=== PATIENT | female | born 1955 | race Caucasian/White ===

== ENCOUNTER → 2016-05-16 | Outpatient (CLI) | payer BC ==
[~2016-05-16] MED LIST: ALBU1AER9 INH; AMB5 PO; AMT24 PO; ARIP1TAB8 PO; ASPI81TA21 PO; ASPI81TA28 PO; ATOR10TA88 PO; BND25X PO; CHOL1CAP95 PO; CHOL1TAB46 PO; CLB/200 PO; CLB200 PO; CLC100 PO; CYAN10005 PO; DOCU100C31 PO; DOXY100C76 PO; DULO60CA44 PO; ERGO500037 PO; HYDR-4079 PO; INSPMPHMLG; INSU100I2; LAMO100T PO; LAMO100T16 PO; LAMO200T38 PO; LINA1CAP2 PO; LITH150C PO; LOSA25TA18 PO; LPT10 PO; LTHSR450 PO; LVQ500 PO; MAGN1SOL7 PO; MOME100A INH; MOME200A INH; MOMLX PO; MULT-506 PO; MULT-589 PO; NYSTCRE32 TOP; OXYB5TAB74 PO; OXYC1TAB3 PO; OXYSR10 PO; POLY335019 PO; PRED1SUS3 OPR; PRLSR20 PO; PRVHFAIN INH; RXC5 PO; TYL325X PO; VNTHFA/IN INH; VTMD PO; XRL10 PO; ZOLP5TAB6 PO
== END | disposition home or self-care (01) ==
LOC: C.PAPS 10:11
PROVIDERS: ATTEND Obstetrics & Gynecology
DX: Z01.419 Encounter for gynecological examination (general) (routine) without abnormal findings (principal)

== ENCOUNTER → 2016-07-07 | Outpatient (CLI) | payer BC ==
[2016-07-07 13:18] LABS: ALT/SGPT 24 U/L (12-78); BLOOD UREA NITROGEN 12 mg/dl (7-18); BUN/CREATININE RATIO 12.9 (10-20); CALCIUM 9.2 mg/dl (8.5-10.1); CARBON DIOXIDE 23 mmol/L (21-32); CHLORIDE 103 mmol/L (98-107); CHOLESTEROL 133 mg/dl (0-200); GLUCOSE 273 mg/dl (70-99); POTASSIUM 4.3 mmol/L (3.5-5.1); SODIUM 136 mmol/L (136-145)
[2016-07-07 13:21] LABS: ALB/GLOB RATIO 0.9 (0.9-2); ALKALINE PHOSPHATASE 95 U/L (45-117); AST/SGOT 14 U/L (15-37); CHOLESTEROL/HDL RATIO 3.6; HDL CHOLESTEROL 37 mg/dl; LDL CHOLESTEROL CALCULATED 66 mg/dl; TRIGLYCERIDES 151 mg/dl (0-150); VERY LOW DENSITY LIPOPROT CALC 30 mg/dl
[2016-07-07 14:10] LABS: ESTIMATED AVERAGE GLUCOSE 209 mg/dl; HA1C FLAG Normal (Normal)
== END | disposition home or self-care (01) ==
LOC: C.LAB1850 11:43
PROVIDERS: ATTEND Internal Medicine
DX: E11.49 Type 2 diabetes mellitus with other diabetic neurological complication (principal); Z11.59 Encounter for screening for other viral diseases; F31.9 Bipolar disorder, unspecified

== ENCOUNTER → 2016-07-11 | Outpatient (CLI) | payer BC ==
--- NOTE | 2016-07-11 15:06 | DIAGNOSTIC IMAGING REPORT ---
CHEST 2 VIEWS ROUTINE CLINICAL HISTORY: R05 [id number] dyspnea COMPARISON STUDY: 02/04/2014 FINDINGS: Moderate cardiomegaly. Prominent 5 vasculature and/or bronchovascular markings. Diaphragms smooth. There are no focal infiltrates. IMPRESSION: Bronchitis versus pulmonary vascular congestion. Electronically signed by: Ja Rodriguez M.D. 07/11/2016 3:05 PM Dictated Date/Time: 07/11/2016 3:04 PM
== END | disposition home or self-care (01) ==
LOC: C.RAD1850 14:55
PROVIDERS: ATTEND Allergy & Immunology Allergy
DX: R05 Cough (principal)

== ENCOUNTER → 2016-07-13 | Outpatient (CLI) | payer BC ==
--- NOTE | 2016-07-13 12:51 | DIAGNOSTIC IMAGING REPORT ---
CHEST 2 VIEWS ROUTINE CLINICAL HISTORY: Acute bronchitis. Cough. COMPARISON STUDY: 07/11/2016 FINDINGS: The heart is borderline enlarged. There is no focal pulmonary consolidation. Mild interstitial prominence likely relates to technical factors given the patient's body habitus. There is no overt failure. There are no pleural effusions.[ IMPRESSION: No active disease in the chest. Electronically signed by: Trevor Brown M.D. 07/13/2016 12:50 PM Dictated Date/Time: 07/13/2016 12:49 PM
== END | disposition home or self-care (01) ==
LOC: C.RAD1850 12:32
PROVIDERS: ATTEND Internal Medicine Infectious Disease
DX: J20.9 Acute bronchitis, unspecified (principal); R05 Cough

== ENCOUNTER 2016-08-31 04:57 | Inpatient (IN) | payer BC ==
[2016-07-29 15:13] VITALS: BMI 44.0
--- NOTE | 2016-07-29 15:30 | PAT Medication Instructions ---
Service Date Jul 29, 2016. Current Home Medication List Albuterol Sulfate (Proair Hfa), 1 PUFF INH Q4 PRN for Wheezing Aripiprazole (Abilify), 10 MG PO QAM Aspirin Enteric Coated (Ecotrin Or Generic), 81 MG PO QPM Atorvastatin (Atorvastatin Calcium), 1 TAB PO QPM Cholecalciferol (Vitamin D3), 1 TAB PO QPM Doxycycline Monohydrate (Monodox), 100 MG PO BID Duloxetine Hcl (Cymbalta), 60 MG PO QAM Ergocalciferol (Vitamin D 52365 Unit), 50,000 UNIT PO WK Insulin Human Lispro (Insulin Humalog Pump ), 1 EA N/A UD Lamotrigine (Lamictal), 200 MG PO HS Lamotrigine (Lamictal), 100 MG PO QAM Linaclotide (Linzess), 290 MCG PO QAM PRN for RN [place] Carbonate ([place] Carbonate), 450 MG PO BID Losartan Potassium (Cozaar), 25 MG PO QAM Mometasone Furoate-Formoterol (Dulera 200/5 Mcg), 2 PUFFS INH BID Omeprazole (Prilosec), 20 MG PO QAM PRN for PRN Oxybutynin Chloride (Ditropan), 10 MG PO BID Medication Instructions For Your Scheduled Surgery Insulin Human Lispro (Insulin Humalog Pump ), 1 EA N/A UD (set pump at basal rate after midnight prior to surgery- no bolus after midnight) Omeprazole (Prilosec), 20 MG PO QAM PRN for PRN (only taking with Doxycycline) - Hold the following medications the morning of surgery: Oxybutynin Chloride (Ditropan), 10 MG PO BID Losartan Potassium (Cozaar), 25 MG PO QAM Linaclotide (Linzess), 290 MCG PO QAM PRN for RN Ergocalciferol (Vitamin D 64936 Unit), 50,000 UNIT PO WK - Take the following medications the morning of surgery with a sip of water: Mometasone Furoate-Formoterol (Dulera 200/5 Mcg), 2 PUFFS INH BID Albuterol Sulfate (Proair Hfa), 1 PUFF INH Q4 PRN for Wheezing (bring with you to hospital on day of surgery) - Take the following medications as scheduled the afternoon/night before surgery : Oxybutynin Chloride (Ditropan), 10 MG PO BID Mometasone Furoate-Formoterol (Dulera 200/5 Mcg), 2 PUFFS INH BID Lamotrigine (Lamictal), 100 MG PO QAM Duloxetine Hcl (Cymbalta), 60 MG PO QAM Aripiprazole (Abilify), 10 MG PO QAM [place] Carbonate ([place] Carbonate), 450 MG PO BID Lamotrigine (Lamictal), 200 MG PO HS Aspirin Enteric Coated (Ecotrin Or Generic), 81 MG PO QPM Atorvastatin (Atorvastatin Calcium), 1 TAB PO QPM Cholecalciferol (Vitamin D3), 1 TAB PO QPM Albuterol Sulfate (Proair Hfa), 1 PUFF INH Q4 PRN for Wheezing If you have any questions please call us at [phone] or [phone] ( Wendie) or [phone]
[2016-07-29 16:31] LABS: BASO % 0.3 %; BASO ABS # 0.03 K/uL (0-0.2); COMPLETE YES; EOS % 1.8 %; HEMATOCRIT 36.8 % (37-47); IG% 0.2 %; LYMPH % 20.5 %; LYMPH ABS # 2.22 K/uL (1.2-3.4); MEAN CORPUSCULAR HEMOGLOBIN 28.4 pg (25-34); MEAN CORPUSCULAR HGB CONC 33.4 g/dl (32-36); MEAN PLATELET VOLUME 8.7 fL (7.4-10.4); MONO % 6.6 %; NEUT % 70.6 %; PLATELET COUNT 189 K/uL (130-400); RED BLOOD COUNT 4.33 M/uL (4.2-5.4); WHITE BLOOD COUNT 10.84 K/uL (4.8-10.8)
[2016-07-29 16:36] LABS: URINE APPEARANCE CLEAR (CLEAR); URINE BILIRUBIN NEG (NEG); URINE COLOR YELLOW; URINE NITRITE NEG (NEG); URINE SPECIFIC GRAVITY 1.011 (1.000-1.030); UROBILINOGEN NEG (NEG); ZZUR CULT IF INDIC CLEAN CATCH NO
[2016-07-29 16:41] LABS: PARTIAL THROMBOPLASTIN RATIO 1.2
[2016-07-29 16:44] LABS: MANUAL MICROSCOPIC REQUIRED? NO; REVIEW REQ? NO
--- NOTE | 2016-08-30 20:14 | HISTORY & PHYSICAL EXAMINATION ---
DATE OF ADMISSION: 08/31/2016 CHIEF COMPLAINT: Chronic right knee pain. HISTORY OF PRESENT ILLNESS: This is a 60-year-old female patient of Dr. Bartholomew, complaining of chronic right knee pain, longstanding, now progressively getting worse. The patient has been diagnosed with end-stage osteoarthritis. She has failed conservative treatment including anti-inflammatories, intraarticular injections, and the use of a cane and a brace. The patient has increased pain with weightbearing activities and her pain does interfere with her activities of daily living. PAST MEDICAL HISTORY: Hypertension, hypercholesterolemia, asthma, COPD, sleep apnea with the use of CPAP, depression, neuropathy in her feet, diabetes with insulin, osteoarthritis, spine problems, sciatica, obesity, dental issues, fatty liver disease, history of basal cell carcinoma. SOCIAL HISTORY: Nonsmoker, nondrinker. SURGICAL HISTORY: Gallbladder, cataract, right knee x2, tonsillectomy, wisdom teeth, and left hand surgery. REVIEW OF SYSTEMS: The patient complains of chronic right knee pain. Otherwise, denies any shortness of breath, chest pain, nausea, vomiting, or other joint complaints. FAMILY HISTORY: Noncontributory. MEDICATIONS: Include insulin via insulin pump, Abilify 10 mg daily, Cymbalta 60 mg daily, Lamictal 200 mg half tablet in the morning and half tablet at bedtime, lithium 450 mg b.i.d., Dulera 200 mcg 2 puffs daily, ProAir HFA 90 mcg 1-2 puffs q. 4 hours p.r.n., 81 mg aspirin daily, Cozaar 25 mg daily, Linzess 290 mcg in the morning every other day, Lipitor 10 mg daily, oxybutynin 5 mg 2 tablets b.i.d., vitamin D 60,000 units weekly and 5000 units nightly. ALLERGIES: INCLUDE LISINOPRIL AND MELOXICAM. PHYSICAL EXAMINATION: GENERAL: Well-developed, well-nourished 60-year-old female in no acute distress. She is alert and oriented x3 and pleasant. HEENT: Normocephalic, atraumatic. Extraocular motions are intact. Pupils are equal and reactive to light. HEART: Regular rate and rhythm, no murmurs appreciated. LUNGS: Clear. ABDOMEN: Soft and nontender, bowel sounds are present. EXTREMITIES: Right knee reveals a valgus deformity. She has limited range of motion of 0-105 degrees. She has lateral joint line tenderness with crepitation with passive range of motion. She has mild effusion. She has 5/5 strength. NEUROLOGIC: Neurovascularly, she is intact in her right lower extremity. DIAGNOSES: Right knee end-stage osteoarthritis, hypertension, hypercholesterolemia, asthma, chronic obstructive pulmonary disease, sleep apnea with the use of CPAP, depression, neuropathy in her feet, diabetes mellitus with an insulin pump, osteoarthritis, spine problems, sciatica, obesity, dental issues, history of fatty liver disease, and a history of basal cell carcinoma. PLAN: The patient was advised of her diagnosis. Indications, risks, benefits, and postop course have all been reviewed. The patient wishes to proceed with right total knee arthroplasty. Necessary consent forms, preoperative testing and clearances will be obtained.
[~2016-08-31] VITALS: Ht 167.6 cm; Wt 125.0 kg
[2016-08-31] VITALS (9 sets, daily range): BP systolic 111–137; BP diastolic 57–74; PULSE 57–72; TEMP 36.6–37; O2SAT 91–100; BMI 44.0
[~2016-08-31 04:57] MED LIST changes: -AMB5 PO; -AMT24 PO; -ASPI81TA28 PO; -ATOR10TA88 PO; -BND25X PO; -CHOL1CAP95 PO; -CLB/200 PO; -CLB200 PO; -CLC100 PO; -CYAN10005 PO; -DOCU100C31 PO; +DTR/5 PO; -HYDR-4079 PO; -INSU100I2; -LAMO100T16 PO; -LTHSR450 PO; -LVQ500 PO; -MAGN1SOL7 PO; -MOME100A INH; -MOMLX PO; -MULT-506 PO; -MULT-589 PO; -NYSTCRE32 TOP; -OXYB5TAB74 PO; -OXYC1TAB3 PO; -OXYSR10 PO; -POLY335019 PO; -PRED1SUS3 OPR; -PRVHFAIN INH; -RXC5 PO; -TYL325X PO; -VNTHFA/IN INH; -VTMD PO; -XRL10 PO; -ZOLP5TAB6 PO
[2016-08-31] MEDS ORDERED: AMT24 PO (05:40)
[2016-08-31] MEDS ORDERED: MAGN1SOL7 PO (05:43)
[2016-08-31] MEDS ORDERED: POLY335019 PO (05:43)
[2016-08-31] MEDS ORDERED: FAMOTIDINE 20 MG TAB PO SCH (06:00)
[2016-08-31] MEDS ORDERED: ROPIVACAINE 5MG/ML 30 ML 150 MG, BUPIVACAINE/EPINEPHR 0.5% MPF 30 ML, KETAMINE HCL INJ ... INFIL SCH ×5 (06:00)
[2016-08-31] MEDS ORDERED: CEFAZOLIN 3000 MG/65 ML D5W 65 ML IV SCH (06:00)
[2016-08-31] MEDS ORDERED: GABAPENTIN 300 MG CAP PO SCH (06:00)
[2016-08-31] MEDS ORDERED: CeleBREX 200 MG CAP PO SCH (06:00)
[2016-08-31] MEDS ORDERED: LACTATED RINGER'S 1000ML 500 ML IV ONE (06:00)
[2016-08-31] MEDS ORDERED: LACTATED RINGER'S 1000ML 1,000 ML IV SCH (06:00)
[2016-08-31] MEDS ORDERED: ACETAMINOPHEN 500 MG TAB PO SCH (06:00)
[2016-08-31] MEDS ORDERED: LACTATED RINGER'S 1000ML IV SCH (06:00)
[2016-08-31] MEDS ORDERED: METOCLOPRAMIDE HCL 10 MG TAB PO SCH (06:00)
[2016-08-31] MEDS ORDERED: BUPIVACAINE 0.5 % 5 MG/1 ML PF 10ML VIAL ONE (06:32)
[2016-08-31] MEDS ORDERED: ORTHO JOINT ANESTHETIC ONE (06:35)
[2016-08-31] MEDS ORDERED: BACITRACIN 50000 UNIT VIAL ONE (06:36)
[2016-08-31] MEDS ORDERED: POVIDONE-IODINE OP SOLN 30 ML BTL ONE (06:36)
[2016-08-31] MEDS ORDERED: MIDAZOLAM HCL 1 MG/ML 2ML VIAL ONE ×2 (06:53)
[2016-08-31] MEDS ORDERED: FENTANYL CITRATE INJ 50 MCG/1 ML 2 ML VIAL ONE (06:53)
[2016-08-31] MEDS ORDERED: ONDANSETRON INJ 2 MG/ML 2 ML VIAL IV PRN ×2 (07:00→09:30)
[2016-08-31] MEDS ORDERED: ATROPINE SULFATE 0.1 MG/ML 5ML SYR IV PRN (07:00)
[2016-08-31] MEDS ORDERED: FENTANYL CITRATE INJ 50 MCG/1 ML 2 ML VIAL IV PRN (07:00)
[2016-08-31] MEDS ORDERED: EpHEDrine SULFATE INJ 50 MG/ML AMP IV PRN (07:00)
--- NOTE | 2016-08-31 07:11 | History & Physical Bridge Note ---
H&P Re-Evaluation Bridge Note: I have examined the patient, reviewed the History & Physical and in the interval since the performance of the History & Physical I have noted the following changes of clinical significance: No changes noted
[2016-08-31] MEDS ORDERED: ONDANSETRON INJ 2 MG/ML 2 ML VIAL ONE (07:28)
[2016-08-31] MEDS ORDERED: EpHEDrine SULFATE 50MG/5ML SYR ONE (07:41)
[2016-08-31] MEDS ORDERED: PHENYLEPHRINE 100MCG/ML 5ML SYR ONE (07:41)
--- NOTE | 2016-08-31 08:53 | [facility] Operative Report ---
Operative Report Operative Date Aug 31, 2016. Pre-Operative Diagnosis Degenerative Joint Disease Right Knee Post-Operative Diagnosis same Procedure(s) Performed right tka Surgeon Dr. Downs [employer] Engineer Surgeon(s) Ja Ambriz PA-C Estimated Blood Loss 5 ml Findings scar from prior knee arthroscopies grade 4 djd lateral valgus knee,s/p lateral meniscectomy Specimens A. Right Knee Bone and Tissue Drains 2 hemovac Anesthesia spinal ,regional ,orthomix Complication(s) None Disposition Recovery Room / PACU Indications end stage djd oa I attest to the content of the Intraoperative Record and any orders documented therein. Any exceptions are noted below.
[2016-08-31] MEDS ORDERED: BISACODYL 10 MG SUPP PR PRN (09:30)
[2016-08-31] MEDS ORDERED: ACETAMINOPHEN 325 MG TAB PO PRN (09:30)
[2016-08-31] MEDS ORDERED: ALBUTEROL HFA 8 GM INHALER INH PRN (09:30)
[2016-08-31] MEDS ORDERED: SOD PHOSPHATE/SOD BIPHOSPHATE ENEMA 132 ML BTL PR PRN (09:30)
[2016-08-31] MEDS ORDERED: ZOLPIDEM TARTRATE 5 MG TAB PO PRN (09:30)
[2016-08-31] MEDS ORDERED: MoRPHine SULFATE 2 MG/ML CARP IV PRN (09:30)
[2016-08-31] MEDS ORDERED: MAGNESIUM CITRATE 296 ML/BTL PO PRN (09:30)
--- NOTE | 2016-08-31 09:31 | OPERATIVE REPORT ---
DATE OF OPERATION: 08/31/2016 INDICATION FOR PROCEDURE: The patient is a 60-year-old female with chronic progressive osteoarthritis in her right knee. She does have obesity and diabetes. She is on insulin pump. She has had 4 knee arthroscopies. She has a valgus knee, [id number] in lateral compartment. PREOPERATIVE DIAGNOSIS: End-stage osteoarthritis, right knee, status post prior arthroscopies, right knee. POSTOPERATIVE DIAGNOSIS: Same. PROCEDURE: Right total knee arthroplasty. SURGEON: Dr. Downs. CONCRETE FINISHING MACHINE OPERATOR: Ja Ambriz PA-C. ANESTHESIA: Spinal, regional block, Orthomix. OPERATIVE PROCEDURE: The patient taken to the operating room, anesthetized under regional block and spinal anesthetic. She was placed supine on the operating room table. Pneumatic tourniquet was placed about her right upper obese thigh. Her right lower extremity was prepped and draped with ChloraPrep in the usual sterile fashion. Preoperative exam demonstrated she had range of motion of -5 through 100 degrees only. She had a stiff knee. No instability. Right lower extremity was elevated, exsanguinated with Esmarch bandage. Pneumatic tourniquet was raised to 350 mmHg because of obesity of her thigh. I used the Lockett \T\ Nephew Journey 2.0 total knee arthroplasty system using [employer] MRI templating. She was sized for a 5 femur and 4 tibia. I made an anterior incision longitudinally across the knee. Subcutaneous flaps were elevated. An incision was made through the medial retinaculum and carried up in the mid third of the quadriceps tendon and down to the medial tibial tubercle. Intraarticular findings demonstrated she had large patellar osteophytes, tricompartmental osteophytes, [id number] in the lateral compartment. She had a previous lateral meniscectomy. She had a lot of scar tissue and she had some synovitis. The knee was exposed by excising the infrapatellar fat pad which was scarred, excised the medial meniscus, and there were no remnants of the lateral meniscus to excise as it was previously excised totally. I excised the PCL and the ACL. Fat pad over the anterior femur for placement of the component in that area was excised. The custom femoral cutting block was placed. This was pinned in position, the distal femoral cut was made, then we went ahead and extended the knee and did a subperiosteal peel lateral release around the patella, measured the patellar width and the width was reproduced using a 32 patellar component, and we used a freehand cut technique. The excess lateral facet of the patella was bevelled off to prevent any impingement. We used the drill to make 3 drill holes for the patellar pegs. The femur was re-exposed and then the 5-in-1 cutting block was placed. Anterior, posterior and chamfer cuts were made for the 5 femur component. Then, the tibia was subluxed and the custom tibial cutting block was pinned in position. Then, the proximal tibia cut was made with the oscillating saw. Then, the lamina manager ob was used and there was a large calcified loose body in the posteromedial compartment. There were some posterior osteophytes that were removed with a curved osteotome and then angled curette. We assessed ligamentous balance with good balance in extension and flexion. We did some release of the lateral capsule to help balance the knee. At this time, the tibia was re-exposed and the 4 tibial trial was externally rotated in line with the tibial tubercle, pinned in position, the punch for the stem was used. Then, the 5 femoral trial was inserted, centered, and the notch cutting devices were used. A collet was placed. A 10 poly insert gave balanced ligaments through full range of motion and patella tracked centrally. She now had full extension and flexion to 125 degrees. The trials were removed. The anesthetic cocktail was injected per protocol. The knee was copiously irrigated with pulsatile lavage antibiotic solution and bacitracin. The final components were cemented with Simplex G cement. Final components were the Lockett \T\ Nephew Journey 2.0, 5 Oxinium femoral component for right knee, then the tibial baseplate which was size 4, the poly was 10 mm posterior stabilized insert, and a 32 patella. All the cement cured and the Betadine soak was used per protocol. The knee was again irrigated with antibiotic solution and bacitracin. Two drains were brought out laterally. The quadriceps tendon and medial retinaculum were closed with interrupted [id number] #1 Vicryl sutures. The knee was taken through full range of motion and repair was secured. Subcutaneous tissues closed with interrupted 2-0 Vicryl, skin closed with cristian. Sterile dressings were applied and Silverlon dressing. The patient tolerated the procedure well. Ja Ambriz PA-C, was my medical administrative assistant, functioned as medical administrative assistant for the entire procedure. He assisted in patient positioning, prepping, draping, soft tissue retraction, instrument management during the procedure, performed the fascial, subcutaneous and skin closure, and will participate in postop care of the patient. I attest to the content of the Intraoperative Record and any orders documented therein. Any exceptio ns are noted below.
--- NOTE | 2016-08-31 09:48 | Anesthesiology Progress Note ---
Anesthesia Post Op Note Date & Time Aug 31, 2016 at 09:47 Vital Signs Pain Intensity: 0 Vital Signs Past 12 Hours Date Time Temp Pulse Resp B/P Pulse Ox O2 Delivery O2 Flow Rate FiO2 08/31/16 09:35 65 20 119/64 98 Nasal Cannula 2 08/31/16 09:25 70 17 103/61 97 Nasal Cannula 2 08/31/16 09:18 36.4 76 20 108/59 100 Mask 10 08/31/16 05:57 36.8 68 20 137/70 95 Room Air Notes Mental Status: alert / awake / arousable, participated in evaluation Pt Amnestic to Procedure: Yes Nausea / Vomiting: adequately controlled Pain: adequately controlled Airway Patency, RR, SpO2: stable & adequate BP & HR: stable & adequate Hydration State: stable & adequate Neuraxial Anesthesia: was administered, sensory block is resolving Anesthetic Complications: no major complications apparent
--- NOTE | 2016-08-31 09:56 | DIAGNOSTIC IMAGING REPORT ---
TWO VIEWS RIGHT KNEE CLINICAL HISTORY: Postoperative examination. FINDINGS: AP and crosstable lateral portable views of the right knee are obtained. A right knee arthroplasty is in near anatomic alignment. There has been undersurface remodeling of the patella. No acute fracture is seen. There are expected postoperative changes around the knee including skin clips, a surgical drain, soft tissue edema, and subcutaneous gas. IMPRESSION: Expected postoperative changes status post right knee arthroplasty. No acute fracture is seen. Electronically signed by: José Galarza M.D. 08/31/2016 9:54 AM Dictated Date/Time: 08/31/2016 9:54 AM
[2016-08-31] MEDS ORDERED: POLYETHYLENE (MIRALAX) 17 GM PACK PO PRN (10:30)
[2016-08-31] MEDS ORDERED: INSULIN HUMAN LISPRO (humaLOG) 100 UNITS/ML VIAL SC PRN (11:00)
[2016-08-31] MEDS ORDERED: GLUCAGON FOR INJ 1 MG VIAL SQ PRN (11:00)
[2016-08-31] MEDS ORDERED: MoRPHine SULFATE 4 MG/ML 1 ML CARP\\VIAL IV PRN (11:00)
[2016-08-31] MEDS ORDERED: GLUCOSE 10 TABS/TUBE PO PRN (11:00)
[2016-08-31] MEDS ORDERED: DEXTROSE 50% 50 ML SYR IV PRN (11:00)
[2016-08-31] MEDS ORDERED: GLUCOSE 40% GEL 15 GM TUBE PO PRN (11:00)
[2016-08-31] MEDS: TRANEXAMIC ACID INJ 1,000 MG in SODIUM CHLORIDE 0.9% 100ML 100 ML IV SCH ×2 (11:04→11:09)
[2016-08-31] MEDS: SODIUM CHLORIDE 0.9% 1000ML 1,000 ML IV SCH ×2 (11:07→19:34)
[2016-08-31] MEDS ORDERED: HydrALAZINE HCL 20 MG/ML VIAL IV. PRN (12:00)
--- NOTE | 2016-08-31 12:14 | Medical Consult ---
Consultation Date of Consultation: Aug 31, 2016. Attending Physician: Moris Downs M.D. Reason for Consultation: Medical management History of Present Illness This is a 60 y/o female with a history of anxiety, depression, DM II, fatty liver disease, hypertension, hyperlipidemia, obstructive sleep apnea, asthma, and chronic constipation who presents s/p right total knee arthroplasty with Dr. Downs on 08/31 for medical management. The patient reports feeling fatigued postoperatively but is otherwise feeling well. She has not eaten, urinated, passed gas or had a bowel movement yet. She still reports numbness and tingling in her legs from the anesthesia. She does report a dry cough. The patient denies fevers, chills, sweats, chest pain, palpitations, claudication, wheezing, shortness of breath, nausea, vomiting, abdominal pain, dysuria, hematuria, urinary retention, paralysis, weakness. Past Medical/Surgical History Anxiety Depression Diabetes mellitus type 2 Fatty liver Hypertension Hyperlipidemia Obstructive sleep apnea Chronic constipation Family History Basal cell carcinoma Cancer Diabetes mellitus Heart disease Hypertension Kidney disease Kidney stones Melanoma Myocardial infarction Social History Smoking Status: Never Smoker Smokeless Tobacco Use: No Alcohol Use: none Drug Use: none Marital Status: single Housing Status: lives alone Occupation Status: unemployed Allergies Coded Allergies: Meloxicam (Unverified Allergy, Unknown, hives, cELEBREX IS OK PER PT., ) Lisinopril (Verified Adverse Reaction, Intermediate, COUGH, 08/31/16) Current Inpatient Medications Current Inpatient Medications Medications (Trade) Dose Ordered Sig/Mable Route Start Time Stop Time Status Last Admin Dose Admin Lactated Ringer's 1,000 ml @ 60 mls/hr [id number] IV 08/31/16 06:00 08/31/16 22:39 08/31/16 06:25 60 MLS/HR Cefazolin Sodium (Ancef 3000 Mg/ 65 ml D5W) 65 ml @ 100 mls/hr PREOP IV 08/31/16 06:00 08/31/16 18:00 08/31/16 07:12 100 MLS/HR Acetaminophen (Tylenol Tab) 1,000 mg PREOP PO 08/31/16 06:00 08/31/16 18:00 08/31/16 06:16 1,000 MG Celecoxib (CeleBREX CAP) 200 mg PREOP PO 08/31/16 06:00 08/31/16 18:00 08/31/16 06:16 200 MG Famotidine (Pepcid Tab) 20 mg PREOP PO 08/31/16 06:00 08/31/16 18:00 08/31/16 06:16 20 MG Gabapentin (Neurontin Cap) 600 mg PREOP PO 08/31/16 06:00 08/31/16 18:00 08/31/16 06:16 600 MG Metoclopramide HCl 10 mg 10 mg PREOP PO 08/31/16 06:00 08/31/16 18:00 08/31/16 06:16 10 MG Tranexamic Acid 1000 mg/Sodium Chloride 110 ml @ 660 mls/hr TODAY@06,0630 IV 08/31/16 06:00 08/31/16 18:00 Ropivacaine 150 mg/Bupivacaine HCl/Epinephrine Bitart 30 ml/ Ketamine HCl 10 mg/Clonidine 100 mcg/Sodium Chloride 30 ml/ Empty Bag 91.2 ml @ 0 mls/hr TODAY@06 INFIL 08/31/16 06:00 08/31/16 15:00 Lactated Ringer's (Lr 1000ml) 1,000 ml @ 15 mls/hr Q24H IV 08/31/16 06:00 09/01/16 05:59 Fentanyl Citrate (Fentanyl Inj) 50 mcg Q5M PRN IV 08/31/16 07:00 08/31/16 13:00 Ondansetron HCl (Zofran Inj) 4 mg ONE PRN IV 08/31/16 07:00 08/31/16 13:00 Ephedrine Sulfate (EpHEDrine SULFATE INJ) 5 mg Q5M PRN IV 08/31/16 07:00 08/31/16 13:00 Atropine Sulfate (Atropine Sulfate 0.1MG/Ml Inj) 0.5 mg Q1M PRN IV 08/31/16 07:00 08/31/16 13:00 Albuterol (Ventolin Hfa Inhaler) 1 puffs Q4 PRN INH 08/31/16 09:30 09/30/16 09:29 Aripiprazole (Abilify Tab) 10 mg QAM PO 09/01/16 09:00 10/01/16 08:59 Atorvastatin Calcium (Lipitor Tab) 10 mg QPM PO 08/31/16 21:00 09/30/16 20:59 Duloxetine HCl (Cymbalta Cap) 60 mg QAM PO 09/01/16 09:00 10/01/16 08:59 Insulin Human Lispro (HumaLOG INSULIN PUMP) 1 ea ACHS N/A 08/31/16 12:00 09/30/16 11:59 Lamotrigine (Lamictal Tab) 100 mg QAM PO 09/01/16 09:00 10/01/16 08:59 Lamotrigine (Lamictal Tab) 200 mg HS PO 08/31/16 21:00 09/30/16 20:59 Losartan Potassium (coZAAR TAB) 25 mg QAM PO 09/01/16 09:00 10/01/16 08:59 Magnesium Citrate (Citrate Of Magnesia Soln) 296 ml DAILY PRN PO 08/31/16 09:30 09/30/16 09:29 Oxybutynin Chloride (Ditropan Tab) 10 mg BID PO 08/31/16 21:00 09/30/16 20:59 Cholecalciferol (Vitamin D Tab) 5,000 inter.unit DAILY@1900 PO 08/31/16 19:00 09/30/16 18:59 [place] Carbonate (Eskalith Cr Tab) 450 mg BID PO 08/31/16 21:00 09/30/16 20:59 Lubiprostone (Amitiza) 24 mcg BIDM PO 08/31/16 17:45 09/30/16 17:44 Miscellaneous Information (Order Awaiting Action) 1 ea QS N/A 08/31/16 16:00 09/30/16 15:59 Polyethylene 17 gm 17 gm DAILY PRN PO 08/31/16 10:30 09/30/16 10:29 Sodium Chloride 1,000 ml @ 100 mls/hr Q10H IV 08/31/16 09:17 09/01/16 09:16 08/31/16 11:07 100 MLS/HR Cefazolin Sodium/ Dextrose (Ancef Iv/D5 50ml) 60 ml @ 100 mls/hr Q8H IV 08/31/16 16:00 09/01/16 00:35 Celecoxib (CeleBREX CAP) 200 mg BID PO 08/31/16 21:00 09/30/16 20:59 Oxycodone HCl (Roxicodone Immediate Rel Tab) 1 TABLET FOR PAIN RATING... Q4H PRN PO 08/31/16 09:30 09/14/16 09:29 Oxycodone HCl (Oxycontin Tab) 10 mg Q12 PO 08/31/16 21:00 09/14/16 20:59 Morphine Sulfate (MoRPHine SULFATE INJ) 2 mg Q2H PRN IV 08/31/16 09:30 09/14/16 09:29 Acetaminophen (Tylenol Tab) 650 mg Q6H PRN PO 08/31/16 09:30 09/30/16 09:29 Magnesium Hydroxide (Milk Of Magnesia Susp) 30 ml Q6H PRN PO 08/31/16 09:30 09/30/16 09:29 Bisacodyl (Dulcolax Supp) 10 mg DAILY PRN CO 08/31/16 09:30 09/30/16 09:29 Sodium Biphosphate/ Sodium Phosphate (Fleet Enema) 132 ml DAILY PRN CO 08/31/16 09:30 09/30/16 09:29 Docusate Sodium (coLACE CAP) 100 mg BID PO 08/31/16 21:00 09/30/16 20:59 Diphenhydramine HCl (Benadryl Cap) 25 mg Q8H PRN PO 08/31/16 09:30 09/30/16 09:29 Zolpidem Tartrate (Ambien Tab) 5 mg HSZ PRN PO 08/31/16 09:30 09/30/16 09:29 Multivitamins (Multivitamin Tab) 1 tab QAM PO 09/01/16 09:00 10/01/16 08:59 Ondansetron HCl (Zofran Inj) 4 mg Q6H PRN IV 08/31/16 09:30 09/30/16 09:29 Pantoprazole Sodium (Protonix Tab) 40 mg QAM PO 09/01/16 09:00 10/01/16 08:59 Tramadol HCl (Ultram Tab) 1 tablet for pain rating... Q4H PRN PO 08/31/16 09:30 09/30/16 09:29 Rivaroxaban (Xarelto Tab) 10 mg Q24H PO 08/31/16 17:30 09/12/16 17:29 UNV Morphine Sulfate (MoRPHine SULFATE INJ) 4 mg Q2H PRN IV 08/31/16 11:00 09/14/16 10:59 Insulin Human Lispro (humaLOG) SLIDING SCALE PRN PRN SC 08/31/16 11:00 09/30/16 10:59 Glucose (Glucose 40% Gel) UD PRN PO 08/31/16 11:00 09/30/16 10:59 Glucose (Glucose Chew Tab) 1 tabs UD PRN PO 08/31/16 11:00 09/30/16 10:59 Glucagon (Glucagon Inj) 1 mg UD PRN SQ 08/31/16 11:00 09/30/16 10:59 Dextrose (Dextrose 50% 50ML Syringe) 50 ml UD PRN IV 08/31/16 11:00 09/30/16 10:59 Review of Systems See HPI for pertinent positives and negatives. All other systems reviewed and negative. Physical Exam Date Time Temp Pulse Resp B/P Pulse Ox O2 Delivery O2 Flow Rate FiO2 08/31/16 11:00 61 16 117/68 94 Nasal Cannula 2.0 08/31/16 10:30 37.0 64 16 111/62 97 Nasal Cannula 2.0 08/31/16 10:00 93 Nasal Cannula 2.0 08/31/16 10:00 93 Nasal Cannula 2.0 08/31/16 10:00 36.6 66 18 112/57 93 Nasal Cannula 2.0 08/31/16 09:45 37.0 61 20 116/56 95 Nasal Cannula 2 08/31/16 09:35 65 20 119/64 98 Nasal Cannula 2 08/31/16 09:25 70 17 103/61 97 Nasal Cannula 2 08/31/16 09:18 36.4 76 20 108/59 100 Mask 10 08/31/16 05:57 36.8 68 20 137/70 95 Room Air General Appearance: WD/WN, no apparent distress, + obese (morbidly obese) Head: normocephalic, atraumatic Eyes: normal inspection, PERRL, EOMI ENT: normal ENT inspection, hearing grossly normal, pharynx normal Neck: supple, no JVD, trachea midline Respiratory/Chest: lungs clear, normal breath sounds, no respiratory distress Cardiovascular: regular rate, rhythm, no gallop, no murmur Abdomen/GI: normal bowel sounds, soft, + tenderness (mild RUQ tenderness) Extremities/Musculoskelatal: normal inspection, no calf tenderness, no pedal edema Neurologic/Psych: alert, normal reflexes, oriented x 3 Skin: normal color, warm/dry, no rash Laboratory Results Last 24 Hours Test 08/31/16 06:05 08/31/16 09:23 08/31/16 11:01 Bedside Glucose 107 mg/dl 110 mg/dl Assessment & Plan 60 y/o female with a history of anxiety, depression, DM II, fatty liver disease , hypertension, hyperlipidemia, obstructive sleep apnea, asthma, and chronic constipation who presents s/p right total knee arthroplasty with Dr. Downs on 08/31 for medical management. -Pain management, DVT prophylaxis, and PT/OT as per primary team -POD #0 Depression -Continue Cymbalta 60 mg PO qd, Lamictal 100 mg qam and 200 mg qpm, lithium 450 mg PO BID, and Abilify 10 mg PO qd Diabetes mellitus type 2--last hemoglobin A1c checked on 07/07/16 was 8.9. Per outpatient endocrinology records, the patient's blood sugars more recently have been well-controlled with an average reading of 122. Bit Shaver expects A1c to be at goal next time it is drawn -Continue patient's insulin pump per protocol -Hold Victoza -Insulin sliding scale -Check BSGs q ac and qhs HTN--stable -Hold losartan for now and renal function is checked/stable -Cover with hydralazine 10 mg IV q6h prn SBP >180 HLD -Continue atorvastatin 10 mg PO qd MARIA R -Continue CPAP, pt brought from home Asthma -Continue Dulera 2 puffs inhaled BID Chronic constipation -Continue Amitiza 24 g PO BID -Dulcolax, Colace, magnesium citrate, milk of magnesia, MiraLAX and Fleet enema on board given narcotics postop and chronic constipation Urinary incontinence -Continue oxybutynin 10 mg PO BID Code Status -Level I, FULL RESUSCITATION STATUS Thank you for this consultation. We will continue to follow.
[2016-08-31 13:15] LABS: BASO % 0.1 %; BASO ABS # 0.02 K/uL (0-0.2); COMPLETE YES; EOS % 1.6 %; HEMATOCRIT 34.8 % (37-47); IG% 0.5 %; LYMPH % 16.4 %; LYMPH ABS # 2.24 K/uL (1.2-3.4); MEAN CELL VOLUME 89.7 fL (80-100); MEAN CORPUSCULAR HEMOGLOBIN 28.9 pg (25-34); MEAN CORPUSCULAR HGB CONC 32.2 g/dl (32-36); MEAN PLATELET VOLUME 8.9 fL (7.4-10.4); MONO % 5.6 %; NEUT % 75.8 %; PLATELET COUNT 204 K/uL (130-400); RED BLOOD COUNT 3.88 M/uL (4.2-5.4); WHITE BLOOD COUNT 13.66 K/uL (4.8-10.8)
[2016-08-31 13:58] LABS: BUN/CREATININE RATIO 17.4 (10-20); CREATININE 0.84 mg/dl (0.60-1.20); POTASSIUM 4.4 mmol/L (3.5-5.1)
[2016-08-31 14:24] LABS: CALCIUM 8.8 mg/dl (8.5-10.1)
[2016-08-31] MEDS: CEFAZOLIN IV 2,000 MG in DEXTROSE 5% 50ML 50 ML IV SCH ×2 (16:30→23:49)
[2016-08-31] MEDS: TRAMADOL HCL 50 MG TAB PO PRN ×2 (16:38→21:00)
[2016-08-31] MEDS: LUBIPROSTONE 8 MCG CAP PO SCH (17:48)
[2016-08-31] MEDS: RIVAROXABAN 10 MG TAB PO SCH (17:48)
[2016-08-31] MEDS: CHOLECALCIFEROL 1000 INTER.UNIT TAB PO SCH (19:31)
[2016-08-31] MEDS: MOMETASONE/FORMOTEROL (DULERA) INH INH SCH (21:01)
[2016-08-31] MEDS: OXYBUTYNIN CHLORIDE 5 MG TAB PO SCH (21:02)
[2016-08-31] MEDS: ATORVASTATIN 10 MG TAB PO SCH (21:02)
[2016-08-31] MEDS: CeleBREX 200 MG CAP PO SCH (21:12)
[2016-08-31] MEDS: DOCUSATE SODIUM 100 MG CAP PO SCH (21:12)
[2016-08-31] MEDS: LITHIUM CARBONATE 450 MG TABCR PO SCH (21:13)
[2016-08-31] MEDS: OXYCODONE HCL 10 MG TABCR (OXYCONTIN) PO SCH (21:16)
[2016-08-31] MEDS: OXYCODONE HCL IR 5 MG TAB (IMMEDIATE RELEASE) PO PRN (23:51)
[2016-09-01 03:31] VITALS: BP 119/71; PULSE 68; TEMP 36.4; O2SAT 91
[2016-09-01] MEDS: SODIUM CHLORIDE 0.9% 1000ML 1,000 ML IV SCH (05:24)
[2016-09-01 06:21] LABS: HEMATOCRIT 33.4 % (37-47); MEAN CELL VOLUME 89.1 fL (80-100); MEAN CORPUSCULAR HEMOGLOBIN 28.8 pg (25-34); MEAN CORPUSCULAR HGB CONC 32.3 g/dl (32-36); PLATELET COUNT 195 K/uL (130-400); RED BLOOD COUNT 3.75 M/uL (4.2-5.4); WHITE BLOOD COUNT 12.35 K/uL (4.8-10.8)
[2016-09-01 06:47] LABS: BUN/CREATININE RATIO 13.5 (10-20); CALCIUM 8.5 mg/dl (8.5-10.1); CREATININE 0.88 mg/dl (0.60-1.20); POTASSIUM 4.4 mmol/L (3.5-5.1)
[2016-09-01 07:15] VITALS: BP 146/81; PULSE 76; TEMP 36.6; O2SAT 93
[2016-09-01] MEDS: OXYCODONE HCL IR 5 MG TAB (IMMEDIATE RELEASE) PO PRN ×2 (07:19→15:47)
--- NOTE | 2016-09-01 07:36 | Anesthesiology Progress Note ---
Anesthesia Post Op Note Date & Time Sep 01, 2016 at 07:35 Vital Signs Pain Intensity: 8.0 Vital Signs Past 12 Hours Date Time Temp Pulse Resp B/P Pulse Ox O2 Delivery O2 Flow Rate FiO2 09/01/16 07:15 36.6 76 20 146/81 93 Room Air 09/01/16 03:31 36.4 68 16 119/71 91 Room Air 08/31/16 23:45 CPAP 08/31/16 23:06 36.6 72 16 124/74 96 Room Air Notes Mental Status: alert / awake / arousable, participated in evaluation Pt Amnestic to Procedure: Yes Nausea / Vomiting: adequately controlled Pain: adequately controlled Airway Patency, RR, SpO2: stable & adequate BP & HR: stable & adequate Hydration State: stable & adequate Anesthetic Complications: no major complications apparent
--- NOTE | 2016-09-01 08:20 | Orthopedic Progress Note ---
Orthopedic Progress Note Date of Service Sep 01, 2016. Subjective Post OP Day: 1 Reports: feeling well, pain controlled w PO medications, Denies: SOB, calf pain , chest pain, complaints, light headedness, nausea / vomiting Objective calves soft nontender, N/V intact, capillary refill less than 2 sec., dressing C /D/I, A&O x3, toes mobile Date Time Temp Pulse Resp B/P Pulse Ox O2 Delivery O2 Flow Rate FiO2 09/01/16 07:15 36.6 76 20 146/81 93 Room Air 09/01/16 07:10 Room Air 09/01/16 03:31 36.4 68 16 119/71 91 Room Air 08/31/16 23:45 CPAP 08/31/16 23:06 36.6 72 16 124/74 96 Room Air 08/31/16 18:55 36.8 57 18 123/74 100 Room Air 08/31/16 16:30 Room Air 08/31/16 15:03 36.6 58 17 119/74 91 Room Air Nasal Cannula 08/31/16 12:59 36.7 67 18 113/63 95 Nasal Cannula 2.0 08/31/16 12:00 64 18 126/68 98 Nasal Cannula 2.0 08/31/16 11:00 61 16 117/68 94 Nasal Cannula 2.0 08/31/16 10:30 37.0 64 16 111/62 97 Nasal Cannula 2.0 08/31/16 10:00 93 Nasal Cannula 2.0 08/31/16 10:00 93 Nasal Cannula 2.0 08/31/16 10:00 36.6 66 18 112/57 93 Nasal Cannula 2.0 08/31/16 09:45 37.0 61 20 116/56 95 Nasal Cannula 2 08/31/16 09:35 65 20 119/64 98 Nasal Cannula 2 08/31/16 09:25 70 17 103/61 97 Nasal Cannula 2 08/31/16 09:18 36.4 76 20 108/59 100 Mask 10 Laboratory Results 24 Hours: Test 08/31/16 12:53 09/01/16 05:36 White Blood Count 13.66 K/uL Red Blood Count 3.88 M/uL Hemoglobin 11.2 g/dL 10.8 g/dL Hematocrit 34.8 % 33.4 % Mean Corpuscular Volume 89.7 fL Mean Corpuscular Hemoglobin 28.9 pg Mean Corpuscular Hemoglobin Concent 32.2 g/dl Platelet Count 204 K/uL Mean Platelet Volume 8.9 fL Neutrophils (%) (Auto) 75.8 % Lymphocytes (%) (Auto) 16.4 % Monocytes (%) (Auto) 5.6 % Eosinophils (%) (Auto) 1.6 % Basophils (%) (Auto) 0.1 % Neutrophils # (Auto) 10.35 K/uL Lymphocytes # (Auto) 2.24 K/uL Monocytes # (Auto) 0.76 K/uL Eosinophils # (Auto) 0.22 K/uL Basophils # (Auto) 0.02 K/uL Assessment & Plan Assessment: POD #1, Right TKA Plan: PT/ OT DVT proph- Xarelto D/C planning- Rehab [facility] medicine input Inhouse Planning Pain Management: Celebrex, Oxycontin, Morphine, PO Tylenol, Oxy IR DVT Prophylaxis: TEDs, SCDs, Xarelto Discharge Planning Discharge Planning: rehab hospital Pain Management: Celebrex, Oxycontin, PO Tylenol, Oxy IR DVT Prophylaxis: TEDs, SCDs, Xarelto Therapy: Physical Therapy, Occupational Therapy
[2016-09-01] MEDS ORDERED: LOSARTAN POTASSIUM 25 MG TAB PO SCH (09:00)
[2016-09-01] MEDS: MOMETASONE/FORMOTEROL (DULERA) INH INH SCH ×2 (09:12→20:59)
[2016-09-01] MEDS: LUBIPROSTONE 8 MCG CAP PO SCH ×2 (09:12→17:57)
[2016-09-01] MEDS: CeleBREX 200 MG CAP PO SCH ×2 (09:13→21:00)
[2016-09-01] MEDS: DULOXETINE HCL 60 MG CAP PO SCH (09:13)
[2016-09-01] MEDS: DOCUSATE SODIUM 100 MG CAP PO SCH ×2 (09:13→21:00)
[2016-09-01] MEDS: ARIPIprazole TAB 10 MG TAB PO SCH (09:13)
[2016-09-01] MEDS: MULTIVITAMIN TAB PO SCH (09:14)
[2016-09-01] MEDS: PANTOprazole SOD 40 MG TAB PO SCH (09:14)
[2016-09-01] MEDS: LITHIUM CARBONATE 450 MG TABCR PO SCH ×2 (09:14→21:00)
[2016-09-01] MEDS: OXYBUTYNIN CHLORIDE 5 MG TAB PO SCH ×2 (09:14→21:00)
[2016-09-01] MEDS: OXYCODONE HCL 10 MG TABCR (OXYCONTIN) PO SCH ×2 (09:23→21:01)
[2016-09-01 12:23] VITALS: BP 138/72; PULSE 62; TEMP 36.5; O2SAT 98
[2016-09-01 13:15] VITALS: Ht 167.6 cm; Wt 125.0 kg
[2016-09-01 15:31] VITALS: BP 152/78; PULSE 72; TEMP 36.4; O2SAT 91
[2016-09-01] MEDS: MAGNESIUM HYDROXIDE SUSP 30 ML UDC PO PRN (15:47)
--- NOTE | 2016-09-01 15:58 | Hospitalist Progress Note ---
Hospitalist Progress Note Date of Service Sep 01, 2016. Subjective Pt evaluation today including: conversation w/ patient, physical exam, chart review No complaints Medications Medications (Trade) Dose Ordered Sig/Mable Route Start Time Stop Time Status Last Admin Dose Admin Aripiprazole (Abilify Tab) 10 mg QAM PO 09/01/16 09:00 10/01/16 08:59 09/01/16 09:13 10 MG Atorvastatin Calcium (Lipitor Tab) 10 mg QPM PO 08/31/16 21:00 09/30/16 20:59 08/31/16 21:02 10 MG Duloxetine HCl (Cymbalta Cap) 60 mg QAM PO 09/01/16 09:00 10/01/16 08:59 09/01/16 09:13 60 MG Lamotrigine (Lamictal Tab) 100 mg QAM PO 09/01/16 09:00 10/01/16 08:59 09/01/16 09:14 100 MG Lamotrigine (Lamictal Tab) 200 mg HS PO 08/31/16 21:00 09/30/16 20:59 08/31/16 21:14 200 MG Oxybutynin Chloride (Ditropan Tab) 10 mg BID PO 08/31/16 21:00 09/30/16 20:59 09/01/16 09:14 10 MG Cholecalciferol (Vitamin D Tab) 5,000 inter.unit DAILY@1900 PO 08/31/16 19:00 09/30/16 18:59 08/31/16 19:31 5,000 INTER.UNIT [place] Carbonate (Eskalith Cr Tab) 450 mg BID PO 08/31/16 21:00 09/30/16 20:59 09/01/16 09:14 450 MG Lubiprostone 24 mcg 24 mcg BIDM PO 08/31/16 17:45 09/30/16 17:44 09/01/16 09:12 24 MCG Cefazolin Sodium/ Dextrose (Ancef Iv/D5 50ml) 60 ml @ 100 mls/hr Q8H IV 08/31/16 16:00 09/01/16 00:35 DC 08/31/16 23:49 100 MLS/HR Celecoxib (CeleBREX CAP) 200 mg BID PO 08/31/16 21:00 09/30/16 20:59 09/01/16 09:13 200 MG Oxycodone HCl (Oxycontin Tab) 10 mg Q12 PO 08/31/16 21:00 09/14/16 20:59 09/01/16 09:23 10 MG Docusate Sodium (coLACE CAP) 100 mg BID PO 08/31/16 21:00 09/30/16 20:59 09/01/16 09:13 100 MG Multivitamins (Multivitamin Tab) 1 tab QAM PO 09/01/16 09:00 10/01/16 08:59 09/01/16 09:14 1 TAB Pantoprazole Sodium (Protonix Tab) 40 mg QAM PO 09/01/16 09:00 10/01/16 08:59 09/01/16 09:14 40 MG Rivaroxaban (Xarelto Tab) 10 mg Q24H PO 08/31/16 17:30 09/11/16 17:31 08/31/16 17:48 10 MG Mometasone Furoate/ Formoterol Fumar (Dulera 100-5 Mcg/Act) 2 puffs BID INH 08/31/16 21:00 09/30/16 20:59 09/01/16 09:12 2 PUFFS Objective Vital Signs Date Time Temp Pulse Resp B/P Pulse Ox O2 Delivery O2 Flow Rate FiO2 09/01/16 15:31 36.4 72 17 152/78 91 Room Air 09/01/16 12:23 36.5 62 16 138/72 98 Room Air 09/01/16 07:15 36.6 76 20 146/81 93 Room Air 09/01/16 07:10 Room Air 09/01/16 03:31 36.4 68 16 119/71 91 Room Air 08/31/16 23:45 CPAP 08/31/16 23:06 36.6 72 16 124/74 96 Room Air 08/31/16 18:55 36.8 57 18 123/74 100 Room Air 08/31/16 16:30 Room Air Physical Exam General Appearance: WD/WN Eyes: normal inspection, PERRL ENT: normal ENT inspection, hearing grossly normal Neck: supple, no adenopathy Respiratory/Chest: chest non-tender, lungs clear Cardiovascular: regular rate, rhythm, no edema Abdomen: normal bowel sounds, non tender, soft Extremities: normal range of motion, + pertinent finding (right knee in dressing) Neurologic/Psychiatric: no motor/sensory deficits, alert, oriented x 3 Skin: normal color Lymphatic: no adenopathy Laboratory Results Last 24 Hours Test 08/31/16 17:14 08/31/16 20:19 08/31/16 23:53 09/01/16 05:36 Bedside Glucose 67 mg/dl 72 mg/dl 138 mg/dl White Blood Count 12.35 K/uL Red Blood Count 3.75 M/uL Hemoglobin 10.8 g/dL Hematocrit 33.4 % Mean Corpuscular Volume 89.1 fL Mean Corpuscular Hemoglobin 28.8 pg Mean Corpuscular Hemoglobin Concent 32.3 g/dl RDW Standard Deviation 49.1 fL RDW Coefficient of Variation 15.1 % Platelet Count 195 K/uL Mean Platelet Volume 9.0 fL Sodium Level 138 mmol/L Potassium Level 4.4 mmol/L Chloride Level 107 mmol/L Carbon Dioxide Level 28 mmol/L Anion Gap 3.0 mmol/L Blood Urea Nitrogen 12 mg/dl Creatinine 0.88 mg/dl Est Creatinine Clear Calc Drug Dose 90.7 ml/min Estimated GFR () 82.2 Estimated GFR (Non- 70.9 BUN/Creatinine Ratio 13.5 Random Glucose 80 mg/dl Calcium Level 8.5 mg/dl Hepatitis C Antibody Screen NEG Test 09/01/16 08:04 09/01/16 12:05 Bedside Glucose 80 mg/dl 110 mg/dl Assessment and Plan 60 y/o female with a history of anxiety, depression, DM II, fatty liver disease , hypertension, hyperlipidemia, obstructive sleep apnea, asthma, and chronic constipation who presents s/p right total knee arthroplasty with Dr. Downs on 08/31 for medical management. -Pain management, DVT prophylaxis, and PT/OT as per primary team -POD #1 -PT/OT/Rehab Depression -Continue Cymbalta 60 mg PO qd, Lamictal 100 mg qam and 200 mg qpm, lithium 450 mg PO BID, and Abilify 10 mg PO qd Diabetes mellitus type 2--last hemoglobin A1c checked on 07/07/16 was 8.9. Per outpatient endocrinology records, the patient's blood sugars more recently have been well-controlled with an average reading of 122. Breaker Up expects A1c to be at goal next time it is drawn -Continue patient's insulin pump per protocol -Hold Victoza -Insulin sliding scale -Check BSGs q ac and qhs HTN--stable -Will restart losartan as renal fn is stable. -Cover with hydralazine 10 mg IV q6h prn SBP >180 HLD -Continue atorvastatin 10 mg PO qd MARIA R -Continue CPAP, pt brought from home Asthma -Continue Dulera 2 puffs inhaled BID Chronic constipation -Continue Amitiza 24 g PO BID -Dulcolax, Colace, magnesium citrate, milk of magnesia, MiraLAX and Fleet enema on board given narcotics postop and chronic constipation Urinary incontinence -Continue oxybutynin 10 mg PO BID Code Status -Level I, FULL RESUSCITATION STATUS
[2016-09-01] MEDS: RIVAROXABAN 10 MG TAB PO SCH (17:57)
[2016-09-01] MEDS: CHOLECALCIFEROL 1000 INTER.UNIT TAB PO SCH (17:57)
[2016-09-01] MEDS: TRAMADOL HCL 50 MG TAB PO PRN ×2 (17:57→23:57)
[2016-09-01] MEDS: ATORVASTATIN 10 MG TAB PO SCH (21:01)
[2016-09-01 23:50] VITALS: BP 123/68; PULSE 75; TEMP 36.7; O2SAT 91
[2016-09-02] VITALS (8 sets, daily range): BP systolic 117–126; BP diastolic 62–71; PULSE 65–83; TEMP 36.5–36.9; O2SAT 85–99
[2016-09-02 06:31] LABS: MEAN CELL VOLUME 88.5 fL (80-100); MEAN CORPUSCULAR HEMOGLOBIN 28.4 pg (25-34); MEAN CORPUSCULAR HGB CONC 32.1 g/dl (32-36); MEAN PLATELET VOLUME 9.1 fL (7.4-10.4); PLATELET COUNT 206 K/uL (130-400); RED BLOOD COUNT 3.73 M/uL (4.2-5.4); WHITE BLOOD COUNT 13.01 K/uL (4.8-10.8)
[2016-09-02 07:10] LABS: BUN/CREATININE RATIO 13.2 (10-20); CALCIUM 8.7 mg/dl (8.5-10.1); CREATININE 0.82 mg/dl (0.60-1.20); POTASSIUM 4.2 mmol/L (3.5-5.1)
--- NOTE | 2016-09-02 08:10 | Orthopedic Progress Note ---
Orthopedic Progress Note Date of Service Sep 02, 2016. Subjective Post OP Day: 2 Reports: feeling well, pain controlled w PO medications, Denies: SOB, calf pain , chest pain, complaints, light headedness, nausea / vomiting Objective calves soft nontender, N/V intact, capillary refill less than 2 sec., dressing C /D/I, A&O x3, toes mobile silverlon in tact Date Time Temp Pulse Resp B/P Pulse Ox O2 Delivery O2 Flow Rate FiO2 09/02/16 07:05 36.5 65 15 120/62 91 CPAP 09/02/16 00:00 Room Air CPAP 09/01/16 23:50 36.7 75 20 123/68 91 Room Air 09/01/16 16:00 Room Air 09/01/16 15:31 36.4 72 17 152/78 91 Room Air 09/01/16 12:23 36.5 62 16 138/72 98 Room Air Laboratory Results 24 Hours: Test 09/02/16 05:40 Hematocrit 33.0 % Hemoglobin 10.6 g/dL Assessment & Plan Assessment: POD #2, Right TKA Plan: PT/ OT DVT proph- Xarelto D/C planning- Rehab when bed avail Appreciate medicine input Inhouse Planning Pain Management: Celebrex, Oxycontin, Morphine, PO Tylenol, Oxy IR DVT Prophylaxis: TEDs, SCDs, Xarelto Discharge Planning Discharge Planning: rehab hospital Pain Management: Celebrex, Oxycontin, PO Tylenol, Oxy IR DVT Prophylaxis: TEDs, SCDs, Xarelto Therapy: Physical Therapy, Occupational Therapy
[2016-09-02] MEDS ORDERED: LOSA25TA18 PO (08:19)
[2016-09-02] MEDS ORDERED: DULO60CA44 PO (08:19)
[2016-09-02] MEDS ORDERED: PRVHFAIN INH (08:19)
[2016-09-02] MEDS ORDERED: TYL325X PO (08:19)
[2016-09-02] MEDS ORDERED: PRLSR20 PO (08:19)
[2016-09-02] MEDS ORDERED: LITH150C PO (08:19)
[2016-09-02] MEDS ORDERED: CLC100 PO (08:19)
[2016-09-02] MEDS ORDERED: DTR/5 PO (08:19)
[2016-09-02] MEDS ORDERED: MOMLX PO (08:19)
[2016-09-02] MEDS ORDERED: MOME200A INH (08:19)
[2016-09-02] MEDS ORDERED: XRL10 PO (08:19)
[2016-09-02] MEDS ORDERED: DIPH25CA50 PO (08:19)
[2016-09-02] MEDS ORDERED: LAMO100T PO (08:19)
[2016-09-02] MEDS ORDERED: POLY335019 PO (08:19)
[2016-09-02] MEDS ORDERED: CLB200 PO (08:19)
[2016-09-02] MEDS ORDERED: INSPMPHMLG (08:19)
[2016-09-02] MEDS ORDERED: LPT10 PO (08:19)
[2016-09-02] MEDS ORDERED: RXC5 PO (08:19)
[2016-09-02] MEDS ORDERED: AMB5 PO (08:19)
[2016-09-02] MEDS ORDERED: LAMO200T38 PO (08:19)
[2016-09-02] MEDS ORDERED: MULT-589 PO (08:19)
[2016-09-02] MEDS ORDERED: AMT24 PO (08:19)
[2016-09-02] MEDS ORDERED: CHOL1TAB46 PO (08:19)
[2016-09-02] MEDS ORDERED: OXYSR10 PO (08:19)
[2016-09-02] MEDS ORDERED: MAGN1SOL7 PO (08:19)
[2016-09-02] MEDS ORDERED: ARIP1TAB8 PO (08:19)
--- NOTE | 2016-09-02 08:21 | Discharge Instructions ---
Discharge Instructions Date of Service Sep 02, 2016. Admission Reason for Admission: Right Knee Degenerative Joint Disease Discharge Discharge Diagnosis / Problem: Right TKA Discharge Goals Goal(s): Improve function Activity Recommendations Activity Level: Assistance Required . Additional Information Patient informed of condition: Yes Advance Directives: Yes DNR: No Level of Care: Acute Rehab Communicable Disease: No Prognosis: Improving Current Hospital Diet Patient's current hospital diet: Diabetes Type 2 Diet Discharge Diet Recommended Diet: Diabetes Type 2 Diet Procedures Procedures Performed: Right Total Knee Arthroplasty Pending Studies Studies pending at discharge: no Laboratory Results Hemoglobin A1c Test 07/07/16 11:48 Range/Units Estimated Average Glucose 209 mg/dl Hemoglobin A1c 8.9 H 4.5-5.6 % Lipid Panel Test 07/07/16 11:48 Range/Units Triglycerides Level 151 H 0-150 mg/dl Cholesterol Level 133 0-200 mg/dl HDL Cholesterol 37 mg/dl Cholesterol/HDL Ratio 3.6 LDL Cholesterol, Calculated 66 mg/dl Medical Emergencies . Who to Call and When: Medical Emergencies: If at any time you feel your situation is an emergency, please call 911 immediately. . Non-Emergent Contact Non-Emergency issues call your: Primary Care Provider . . "Provider Documentation" section prepared by Ja Ambriz. . Core Measure Problem Core Measures: VTE VTE Core Measures Date of VTE Diagnosis: Sep 02, 2016 Time of VTE Diagnosis: 08:21 Reason no anticoag overlap I/P: Treatment provided - N/A Reason no anticoag overlap @DC: Treatment provided - N/A [place] Drug Monitoring Program Search Results: patient reviewed within database, no issues identified
[2016-09-02] MEDS: DULOXETINE HCL 60 MG CAP PO SCH (08:35)
[2016-09-02] MEDS: MULTIVITAMIN TAB PO SCH (08:35)
[2016-09-02] MEDS: ARIPIprazole TAB 10 MG TAB PO SCH (08:36)
[2016-09-02] MEDS: LUBIPROSTONE 8 MCG CAP PO SCH ×2 (08:36→17:25)
[2016-09-02] MEDS: PANTOprazole SOD 40 MG TAB PO SCH (08:36)
[2016-09-02] MEDS: LITHIUM CARBONATE 450 MG TABCR PO SCH ×2 (08:37→20:47)
[2016-09-02] MEDS: OXYBUTYNIN CHLORIDE 5 MG TAB PO SCH ×2 (08:37→20:45)
[2016-09-02] MEDS: DOCUSATE SODIUM 100 MG CAP PO SCH ×2 (08:38→20:45)
[2016-09-02] MEDS: MOMETASONE/FORMOTEROL (DULERA) INH INH SCH ×2 (08:38→20:44)
[2016-09-02] MEDS: CeleBREX 200 MG CAP PO SCH ×2 (08:38→20:46)
[2016-09-02] MEDS: OXYCODONE HCL IR 5 MG TAB (IMMEDIATE RELEASE) PO PRN (08:41)
[2016-09-02] MEDS: OXYCODONE HCL 10 MG TABCR (OXYCONTIN) PO SCH (08:41)
[2016-09-02 12:17] LABS: ARTERIAL BLD GAS O2 SATURATION 86.2 % (90-95); ARTERIAL BLOOD GAS BASE EXCESS 0.5 mEq/L (-9-1.8); ARTERIAL BLOOD GAS HCO3 26 mmol/L (19-24); ARTERIAL BLOOD GAS PO2 53 mm/Hg (80-95)
[2016-09-02 12:19] LABS: ALLEN TEST POS (POS); O2 ADMINISTRATION RA
--- NOTE | 2016-09-02 12:25 | DIAGNOSTIC IMAGING REPORT ---
CHEST 2 VIEWS ROUTINE CLINICAL HISTORY: HYPOXIA COMPARISON STUDY: 07/13/2016 FINDINGS: The cardiac and mediastinal contours remain stable. There is mild interstitial thickening. There are mildly increased left basal markings, likely in part secondary to technical factors. Minimal airspace disease cannot be excluded. There are no pleural effusions. There is no overt failure.[ IMPRESSION: Prominent left basal markings. While this may relate to technical factors, minimal left basilar airspace disease cannot be excluded. If the patient remains symptomatic, radiographic follow-up is recommended. Electronically signed by: Trevor Brown M.D. 09/02/2016 12:24 PM Dictated Date/Time: 09/02/2016 12:22 PM
--- NOTE | 2016-09-02 12:58 | DIAGNOSTIC IMAGING REPORT ---
ULTRASOUND RIGHT LOWER EXTREMITY VENOUS CLINICAL HISTORY: Right leg swelling. COMPARISON STUDY: Bilateral lower extremity venous ultrasound dated 01/10/2008. TECHNIQUE: Real-time, grayscale, and color Doppler sonography of the deep veins of the right lower extremity was performed from the inguinal crease to the calf. Compression and augmentation were utilized. FINDINGS: There is no sonographic evidence of deep venous thrombosis identified in the right lower extremity. The common femoral, superficial femoral, and popliteal veins are patent and normally compressible. Nonocclusive superficial venous thrombus is identified in the greater saphenous vein. The profunda femoris vein at the junction with the common femoral vein is clear. The visualized calf veins are patent. IMPRESSION: 1. There is no sonographic evidence of deep venous thrombosis identified in the right lower extremity. 2. There is nonocclusive superficial venous thrombus identified in the greater saphenous vein. Electronically signed by: José Galarza M.D. 09/02/2016 12:56 PM Dictated Date/Time: 09/02/2016 12:54 PM
[2016-09-02] MEDS ORDERED: NURSING VERBAL MED ORDER ONE ×2 (14:15)
--- NOTE | 2016-09-02 14:18 | Hospitalist Progress Note ---
Hospitalist Progress Note Date of Service Sep 02, 2016. Subjective Pt evaluation today including: conversation w/ patient, physical exam, chart review More somnolent this am and also hypoxic (needing 3 lits oxygen to maintain sats greater than 92 percent) Constitutional: No chills, No fatigue, No fever, No problem reported, No see HPI, No sweats, No weakness, No weight loss Respiratory: + problem reported (poor resp. effort) Cardiovascular: No PND, No chest pain, No claudication, No edema, No orthopnea, No palpitations, No problem reported, No see HPI Abdomen: No GI bleeding, No constipation, No diarrhea, No nausea, No pain, No problem reported, No see HPI, No vomiting Musculoskeletal: No calf pain, No joint pain, No muscle pain, No problem reported, No see HPI, No swelling Neurologic: No balance problems, No memory loss, No numbness/tingling, No paralysis, No problem reported, No see HPI, No vertigo, No weakness Objective Vital Signs Date Time Temp Pulse Resp B/P Pulse Ox O2 Delivery O2 Flow Rate FiO2 09/02/16 12:05 85 09/02/16 11:23 Nasal Cannula 3.0 09/02/16 10:43 92 Nasal Cannula 3.0 09/02/16 10:43 85 Room Air 09/02/16 08:15 Room Air CPAP 09/02/16 07:05 36.5 65 15 120/62 91 CPAP 09/02/16 00:00 Room Air CPAP 09/01/16 23:50 36.7 75 20 123/68 91 Room Air 09/01/16 16:00 Room Air 09/01/16 15:31 36.4 72 17 152/78 91 Room Air Physical Exam General Appearance: + obese Eyes: normal inspection ENT: normal ENT inspection Neck: supple Respiratory/Chest: chest non-tender, + decreased breath sounds Cardiovascular: regular rate, rhythm, no edema Abdomen: normal bowel sounds, non tender, soft Extremities: + pertinent finding (right knee in dressing) Neurologic/Psychiatric: oriented x 3 Laboratory Results Last 24 Hours Test 09/01/16 17:03 09/02/16 05:40 09/02/16 08:02 09/02/16 11:52 Bedside Glucose 103 mg/dl 91 mg/dl White Blood Count 13.01 K/uL Red Blood Count 3.73 M/uL Hemoglobin 10.6 g/dL Hematocrit 33.0 % Mean Corpuscular Volume 88.5 fL Mean Corpuscular Hemoglobin 28.4 pg Mean Corpuscular Hemoglobin Concent 32.1 g/dl RDW Standard Deviation 48.8 fL RDW Coefficient of Variation 15.1 % Platelet Count 206 K/uL Mean Platelet Volume 9.1 fL Sodium Level 136 mmol/L Potassium Level 4.2 mmol/L Chloride Level 103 mmol/L Carbon Dioxide Level 29 mmol/L Anion Gap 4.0 mmol/L Blood Urea Nitrogen 11 mg/dl Creatinine 0.82 mg/dl Est Creatinine Clear Calc Drug Dose 97.3 ml/min Estimated GFR () 89.5 Estimated GFR (Non- 77.2 BUN/Creatinine Ratio 13.2 Random Glucose 89 mg/dl Calcium Level 8.7 mg/dl Arterial Blood pH 7.40 Arterial Blood Partial Pressure CO2 42 mmHg Arterial Blood Partial Pressure O2 53 mm/Hg Arterial Blood HCO3 26 mmol/L Arterial Blood Oxygen Saturation 86.2 % Arterial Blood Base Excess 0.5 mEq/L Arterial Blood Gas Delivery RA Kev Test POS Test 09/02/16 11:59 Bedside Glucose 88 mg/dl Diagnostic Results Ref Phy: Asia Berry PA-C SC: C.3E Att Phy: Moris Downs M.D. Report #: [id number] Amna Phy: RV. Santana MD Test: VDLEU Admit Phy: Moris Downs M.D. Recreation Facility Manager: FLECAX Interpreting Phy: José Galarza M.D. Diagnosis: Right Knee Degenerative Joint Disease Ordering Phy: Dyana Carbone M.D. Service Date: 09/02/16 Admit Date: 09/01/1703/26/17 MNE: [id number] CONF: DICTATED BY: José Galarza M.D.]] CC: RV. Santana MD Gadi, Ramprasad ., M.D. Rogusky, Edwin, M.D. Tyson, Sara, PA-C Endcc: [~ rep ct add3]] ULTRASOUND RIGHT LOWER EXTREMITY VENOUS CLINICAL HISTORY: Right leg swelling. COMPARISON STUDY: Bilateral lower extremity venous ultrasound dated 01/10/2008. TECHNIQUE: Real-time, grayscale, and color Doppler sonography of the deep veins of the right lower extremity was performed from the inguinal crease to the calf. Compression and augmentation were utilized. FINDINGS: There is no sonographic evidence of deep venous thrombosis identified in the right lower extremity. The common femoral, superficial femoral, and popliteal veins are patent and normally compressible. Nonocclusive superficial venous thrombus is identified in the greater saphenous vein. The profunda femoris vein at the junction with the common femoral vein is clear. The visualized calf veins are patent. IMPRESSION: 1. There is no sonographic evidence of deep venous thrombosis identified in the right lower extremity. 2. There is nonocclusive superficial venous thrombus identified in the greater saphenous vein. Electronically signed by: José Galarza M.D. 09/02/2016 12:56 PM Dictated Date/Time: 09/02/2016 12:54 PM Assessment and Plan 60 y/o female with a history of anxiety, depression, DM II, fatty liver disease , hypertension, hyperlipidemia, obstructive sleep apnea, asthma, and chronic constipation who presents s/p right total knee arthroplasty with Dr. Downs on 08/31 for medical management. -Pain management, DVT prophylaxis, and PT/OT as per primary team -POD #1 -PT/OT/Rehab Hypoxia -Likely related to poor resp effort + atelectasis. US right leg is neg for DVT. ABG shows hypoxemia. -IS, oxygen, nebs. Depression -Continue Cymbalta 60 mg PO qd, Lamictal 100 mg qam and 200 mg qpm, lithium 450 mg PO BID, and Abilify 10 mg PO qd Diabetes mellitus type 2--last hemoglobin A1c checked on 07/07/16 was 8.9. Per outpatient endocrinology records, the patient's blood sugars more recently have been well-controlled with an average reading of 122. Tipping Machine Operator Automatic expects A1c to be at goal next time it is drawn -Continue patient's insulin pump per protocol -Hold Victoza -Insulin sliding scale -Check BSGs q ac and qhs HTN--stable -Will restart losartan as renal fn is stable. -Cover with hydralazine 10 mg IV q6h prn SBP >180 HLD -Continue atorvastatin 10 mg PO qd MARIA R -Continue CPAP, pt brought from home Asthma -Continue Dulera 2 puffs inhaled BID Chronic constipation -Continue Amitiza 24 g PO BID -Dulcolax, Colace, magnesium citrate, milk of magnesia, MiraLAX and Fleet enema on board given narcotics postop and chronic constipation Urinary incontinence -Continue oxybutynin 10 mg PO BID Code Status -Level I, FULL RESUSCITATION STATUS
[2016-09-02] MEDS ORDERED: NALOXONE HCL 0.4 MG/1 ML VIAL/CARP IV STA (16:18)
[2016-09-02] MEDS: RIVAROXABAN 10 MG TAB PO SCH (17:22)
[2016-09-02] MEDS: ACETAMINOPHEN 500 MG TAB PO SCH ×2 (17:22→21:37)
[2016-09-02] MEDS: CHOLECALCIFEROL 1000 INTER.UNIT TAB PO SCH (18:24)
[2016-09-02] MEDS ORDERED: DC ALL PREVIOUSLY ORDERED DIABETES MEDS ONE (18:30)
[2016-09-02] MEDS ORDERED: GLUCOSE 10 TABS/TUBE PO PRN (18:30)
[2016-09-02] MEDS ORDERED: DEXTROSE 50% 50 ML SYR IV PRN (18:30)
[2016-09-02] MEDS ORDERED: GLUCAGON FOR INJ 1 MG VIAL SQ PRN (18:30)
[2016-09-02] MEDS ORDERED: GLUCOSE 40% GEL 15 GM TUBE PO PRN (18:30)
[2016-09-02] MEDS ORDERED: PHARMACY GLYCEMIC MGMT CONSULT PRN (20:11)
[2016-09-02] MEDS: MAGNESIUM HYDROXIDE SUSP 30 ML UDC PO PRN (20:44)
[2016-09-02] MEDS: ATORVASTATIN 10 MG TAB PO SCH (20:45)
[2016-09-02] MEDS ORDERED: INSULIN IV INFUSION PROTOCOL STA (21:08)
[2016-09-02] MEDS ORDERED: INSULIN PROTOCOL GOAL RANGE ONE (21:15)
--- NOTE | 2016-09-02 21:28 | Pharmacy Progress Note ---
Glycemic: Assessment & Plan Date of Service Sep 02, 2016. Assessment & Plan Item Value Date Time Bedside Glucose 143 mg/dl H 09/02/16 2038 Bedside Glucose 122 mg/dl H 09/02/16 1703 Bedside Glucose 88 mg/dl 09/02/16 1159 Bedside Glucose 91 mg/dl H 09/02/16 0802 Bedside Glucose 103 mg/dl H 09/01/16 1703 Bedside Glucose 110 mg/dl H 09/01/16 1205 Bedside Glucose 80 mg/dl 09/01/16 0804 Bedside Glucose 138 mg/dl H 08/31/16 2353 Bedside Glucose 72 mg/dl 08/31/16 2019 Bedside Glucose 67 mg/dl *L 08/31/16 1714 Bedside Glucose 87 mg/dl 08/31/16 1152 Bedside Glucose 110 mg/dl H 08/31/16 0923 Home Diabetes Regimen: * Victoza 1.8mg daily * Humalog Insulin Pump (Medtronic Insulin pump) with following settings: 0000- 0300 3.4units/hr, 9899-1359 3.45units/hr, 1640-7613, 3.2units/hr, 3530-0651 3.35units/hr, (79.45units) plus CR: 1unit/4g carb,,with CF=13 and BG goal of 100 -150. PLAN: Pt POD#2, she has been managing BSGs/insulin needs with her Humalog insulin pump since surgery, however her mental status changes have made it necessary to d/c Humalog insulin pump & will utilize an insulin infusion until pt readily able to manage sub-q pump again. The patient is currently receiving Humalog ~80 units per day (BASAL NEEDS). Her pump was removed 09/02/16 @ 1745. Will plan to start IV Insulin Infusion when BSG > 180mg/dL and then adjusted per insulin infusion protocol. Will assess BSGs hourly. Pharmacy will continue to monitor patient daily and write orders per [facility] inpatient glycemic control protocol. Thanks. * Please note that the plan above was derived based on current level of insulin resistance and hospital stress. These recommendations are appropriate for inpatient admission only. Plan of care upon discharge will need to be reassessed to avoid potential outpatient hypo/hyperglycemia.
[2016-09-03 03:30] VITALS: O2SAT 96
[2016-09-03 05:10] VITALS: O2SAT 95
[2016-09-03] MEDS: ACETAMINOPHEN 500 MG TAB PO SCH ×3 (05:18→21:41)
[2016-09-03 07:48] VITALS: BP 99/59; PULSE 79; TEMP 36.6; O2SAT 92
--- NOTE | 2016-09-03 08:40 | Orthopedic Progress Note ---
Orthopedic Progress Note Date of Service Sep 03, 2016. Subjective Post OP Day: 3 Reports: feeling well, pain controlled w PO medications, Denies: SOB, calf pain , chest pain, complaints, light headedness, nausea / vomiting Additional Notes: CXR and LE dopplers neg States she feels much better today. O2sats 92% room air Objective calves soft nontender, N/V intact, capillary refill less than 2 sec., dressing C /D/I, A&O x3, toes mobile More awake and oriented this AM Date Time Temp Pulse Resp B/P Pulse Ox O2 Delivery O2 Flow Rate FiO2 09/03/16 07:48 36.6 79 20 99/59 92 Room Air 09/03/16 05:10 95 CPAP 2.0 09/03/16 03:30 96 Non-Rebreather 4.0 09/02/16 23:45 99 Non-Rebreather 6.0 09/02/16 23:20 36.8 76 24 124/65 91 CPAP 12.0 09/02/16 16:50 36.8 83 17 117/68 94 CPAP 12.0 09/02/16 16:25 93 CPAP 12.0 Non-Rebreather 09/02/16 15:12 36.9 74 20 126/71 86 CPAP 4.0 09/02/16 12:05 85 09/02/16 11:23 Nasal Cannula 3.0 09/02/16 10:43 92 Nasal Cannula 3.0 09/02/16 10:43 85 Room Air Assessment & Plan Assessment: POD #3, Right TKA Plan: PT/ OT DVT proph- Xarelto D/C planning- Rehab when bed avail and cleared by medicine. Appreciate medicine input Inhouse Planning Pain Management: Celebrex, Oxycontin, Morphine, PO Tylenol, Oxy IR DVT Prophylaxis: TEDs, SCDs, Xarelto Discharge Planning Discharge Planning: rehab hospital Pain Management: Celebrex, Oxycontin, PO Tylenol, Oxy IR DVT Prophylaxis: TEDs, SCDs, Xarelto Therapy: Physical Therapy, Occupational Therapy
[2016-09-03] MEDS: LITHIUM CARBONATE 450 MG TABCR PO SCH ×2 (08:57→21:41)
[2016-09-03] MEDS: DOCUSATE SODIUM 100 MG CAP PO SCH ×2 (08:57→21:40)
[2016-09-03] MEDS: OXYBUTYNIN CHLORIDE 5 MG TAB PO SCH ×2 (08:57→21:40)
[2016-09-03] MEDS: MULTIVITAMIN TAB PO SCH (08:58)
[2016-09-03] MEDS: PANTOprazole SOD 40 MG TAB PO SCH (08:58)
[2016-09-03] MEDS: DULOXETINE HCL 60 MG CAP PO SCH (08:58)
[2016-09-03] MEDS: LUBIPROSTONE 8 MCG CAP PO SCH ×2 (08:58→17:48)
[2016-09-03] MEDS: ARIPIprazole TAB 10 MG TAB PO SCH (08:58)
[2016-09-03] MEDS: MOMETASONE/FORMOTEROL (DULERA) INH INH SCH ×2 (08:59→21:39)
[2016-09-03] MEDS: CeleBREX 200 MG CAP PO SCH ×2 (08:59→21:40)
[2016-09-03] MEDS ORDERED: INSULIN ASPART 100 UNITS/ML 3 ML PEN SC SCH ×2 (09:00)
[2016-09-03] MEDS: TRAMADOL HCL 50 MG TAB PO PRN ×2 (10:42→15:59)
--- NOTE | 2016-09-03 11:37 | Pharmacy Progress Note ---
Glycemic: Assessment & Plan Date of Service Sep 03, 2016. Assessment & Plan Assessment * Patient's own pump turned off yesterday evening 2nd decreased alertness * Pending order written to start insulin infusion once BSG's > 180 mg/dL. This only just happened this AM. Insulin gtt was never started. * Spoke w RN, who reports patient is now AAO and is capable of managing own pump. Patient may be discharged today * OK to resume patient's own insulin pump Plan * Resume patient's own Humalog pump * Insulin to be managed by patient Pharmacy will continue to monitor patient daily and write orders per [facility] inpatient glycemic control protocol. Thanks. * Please note that the plan above was derived based on current level of insulin resistance and hospital stress. These recommendations are appropriate for inpatient admission only. Plan of care upon discharge will need to be reassessed to avoid potential outpatient hypo/hyperglycemia.
[2016-09-03] MEDS ORDERED: INSULIN HUMAN LISPRO (humaLOG) 100 UNITS/ML VIAL SC PRN (11:45)
--- NOTE | 2016-09-03 13:40 | Hospitalist Progress Note ---
Hospitalist Progress Note Date of Service Sep 03, 2016. (José Garcia PA-C) Subjective Pt evaluation today including: conversation w/ patient, physical exam, chart review, lab review Pain: Well controlled Voiding: no voiding problems Patient continues with persistent SOB and NOWAK. Requiring 2 L/min via NC. Desaturates to the mid 80s on room air. Previous CXR reviewed. Check repeat CXR to r/o developing infiltrate. Persistent cough but is non-productive. Patient more alert today. Able to manage insulin pump today. Denies fever. sweats, chills, rigors.knee pain is well-controlled. No other acute complaints. Additional Comments: A total of 12 systems was reviewed and is negative other than as listed above in the HPI All Other Systems: Reviewed and Negative (José Garcia PA-C) Medications Current Inpatient Medications Medications (Trade) Dose Ordered Sig/Mable Route Start Time Stop Time Status Last Admin Dose Admin Aripiprazole (Abilify Tab) 10 mg QAM PO 09/01/16 09:00 10/01/16 08:59 09/03/16 08:58 10 MG Atorvastatin Calcium (Lipitor Tab) 10 mg QPM PO 08/31/16 21:00 09/30/16 20:59 09/03/16 21:40 10 MG Duloxetine HCl (Cymbalta Cap) 60 mg QAM PO 09/01/16 09:00 10/01/16 08:59 09/03/16 08:58 60 MG Lamotrigine (Lamictal Tab) 100 mg QAM PO 09/01/16 09:00 10/01/16 08:59 09/03/16 08:59 100 MG Lamotrigine (Lamictal Tab) 200 mg HS PO 08/31/16 21:00 09/30/16 20:59 09/03/16 21:40 200 MG Losartan Potassium (coZAAR TAB) 25 mg QAM PO 09/01/16 09:00 10/01/16 08:59 Future Hold Magnesium Citrate (Citrate Of Magnesia Soln) 296 ml DAILY PRN PO 08/31/16 09:30 09/30/16 09:29 Oxybutynin Chloride (Ditropan Tab) 10 mg BID PO 08/31/16 21:00 09/30/16 20:59 09/03/16 21:40 10 MG Cholecalciferol (Vitamin D Tab) 5,000 inter.unit DAILY@1900 PO 08/31/16 19:00 09/30/16 18:59 09/03/16 17:48 5,000 INTER.UNIT [place] Carbonate (Eskalith Cr Tab) 450 mg BID PO 08/31/16 21:00 09/30/16 20:59 09/03/16 21:41 450 MG Lubiprostone (Amitiza) 24 mcg BIDM PO 08/31/16 17:45 09/30/16 17:44 09/03/16 17:48 24 MCG Polyethylene (Miralax Powder Packet) 17 gm DAILY PRN PO 08/31/16 10:30 09/30/16 10:29 Celecoxib (CeleBREX CAP) 200 mg BID PO 08/31/16 21:00 09/30/16 20:59 09/03/16 21:40 200 MG Acetaminophen (Tylenol Tab) 650 mg Q6H PRN PO 08/31/16 09:30 09/30/16 09:29 Magnesium Hydroxide (Milk Of Magnesia Susp) 30 ml Q6H PRN PO 08/31/16 09:30 09/30/16 09:29 09/02/16 20:44 30 ML Bisacodyl (Dulcolax Supp) 10 mg DAILY PRN NC 08/31/16 09:30 09/30/16 09:29 Sodium Biphosphate/ Sodium Phosphate (Fleet Enema) 132 ml DAILY PRN NC 08/31/16 09:30 09/30/16 09:29 Docusate Sodium (coLACE CAP) 100 mg BID PO 08/31/16 21:00 09/30/16 20:59 09/03/16 21:40 100 MG Diphenhydramine HCl (Benadryl Cap) 25 mg Q8H PRN PO 08/31/16 09:30 09/30/16 09:29 Zolpidem Tartrate (Ambien Tab) 5 mg HSZ PRN PO 08/31/16 09:30 09/30/16 09:29 Multivitamins (Multivitamin Tab) 1 tab QAM PO 09/01/16 09:00 10/01/16 08:59 09/03/16 08:58 1 TAB Ondansetron HCl (Zofran Inj) 4 mg Q6H PRN IV 08/31/16 09:30 09/30/16 09:29 Pantoprazole Sodium (Protonix Tab) 40 mg QAM PO 09/01/16 09:00 10/01/16 08:59 09/03/16 08:58 40 MG Tramadol HCl (Ultram Tab) 1 tablet for pain rating... Q4H PRN PO 08/31/16 09:30 09/30/16 09:29 09/03/16 15:59 50 MG Rivaroxaban (Xarelto Tab) 10 mg Q24H PO 08/31/16 17:30 09/11/16 17:31 09/03/16 17:47 10 MG Glucose (Glucose 40% Gel) UD PRN PO 08/31/16 11:00 09/30/16 10:59 Glucose (Glucose Chew Tab) 1 tabs UD PRN PO 08/31/16 11:00 09/30/16 10:59 Glucagon (Glucagon Inj) 1 mg UD PRN SQ 08/31/16 11:00 09/30/16 10:59 Dextrose (Dextrose 50% 50ML Syringe) 50 ml UD PRN IV 08/31/16 11:00 09/30/16 10:59 Hydralazine HCl (HydrALAZINE INJ) 10 mg Q6H PRN IV. 08/31/16 12:00 09/30/16 11:59 Mometasone Furoate/ Formoterol Fumar (Dulera 100-5 Mcg/Act) 2 puffs BID INH 08/31/16 21:00 09/30/16 20:59 09/03/16 21:39 2 PUFFS Acetaminophen (Tylenol Tab) 1,000 mg Q8@0600,1400,2200 PO 09/02/16 15:00 10/02/16 14:59 09/03/16 21:41 1,000 MG Miscellaneous Information (Consult Glycemic Management Pharmacy) 1 ea UD PRN N/A 09/02/16 20:11 10/02/16 20:10 Insulin Human Lispro (HumaLOG INSULIN PUMP) 1 ea ACHS N/A 09/03/16 12:00 10/03/16 11:59 09/03/16 21:39 1 EA Insulin Human Lispro (humaLOG) SLIDING SCALE PRN PRN SC 09/03/16 11:45 10/03/16 11:44 Levofloxacin (Levaquin Tab) 750 mg DAILY@11 PO 09/03/16 15:30 09/10/16 15:29 09/03/16 15:58 750 MG Albuterol/ Ipratropium (Duoneb) 3 ml QIDR INH 09/03/16 20:00 10/03/16 19:59 09/03/16 19:28 3 ML (José Garcia PA-C) Objective Vital Signs Date Time Temp Pulse Resp B/P Pulse Ox O2 Delivery O2 Flow Rate FiO2 09/03/16 07:48 36.6 79 20 99/59 92 Room Air 09/03/16 07:15 Nasal Cannula 2.0 09/03/16 05:10 95 CPAP 2.0 09/03/16 03:30 96 Non-Rebreather 4.0 09/02/16 23:45 99 Non-Rebreather 6.0 09/02/16 23:20 36.8 76 24 124/65 91 CPAP 12.0 09/02/16 16:50 36.8 83 17 117/68 94 CPAP 12.0 09/02/16 16:25 93 CPAP 12.0 Non-Rebreather 09/02/16 15:12 36.9 74 20 126/71 86 CPAP 4.0 (José Garcia PA-C) Physical Exam Notes: Vital Signs - as noted below Laboratory Data - as noted below Physical Exam: General - NAD Eyes - No icterus, gaze conjugate ENT - Mucosa moist, no lesions or candidiasis Neck - Supple, No JVD Lungs - No bronchospasm, rales, or rhonchi. Heart - Regular, rate controlled Abdomen - Soft, NT, ND, BS present Extremities - No edema, pedal pulses intact. Ice applied to right knee Neuro - A&OX3. Sleeping initially but awakens easily (José Garcia PA-C) Laboratory Results Last 24 Hours Test 09/02/16 17:03 09/02/16 20:38 09/02/16 23:18 09/03/16 00:58 Bedside Glucose 122 mg/dl 143 mg/dl 162 mg/dl 138 mg/dl Test 09/03/16 02:53 09/03/16 04:55 09/03/16 05:21 09/03/16 06:54 Bedside Glucose 151 mg/dl 150 mg/dl 149 mg/dl 157 mg/dl Test 09/03/16 08:35 09/03/16 11:16 Bedside Glucose 138 mg/dl 210 mg/dl (José Garcia PA-C) Assessment and Plan TOTAL RIGHT KNEE ARTHROPLASTY Dr. Downs Seen by ortho this morning Discharge to [facility] when medically cleared HYPOXIA CXR with increased consolidation on left Started on Levofloxacin Increased WBC yesterday Check repeat labs in the morning DM TYPE II Patient had insulin pump held for increased lethargy More awake - pump reinstituted Continue to follow BSGs and bolus pump per patient parameters DEPRESSION/ANXIETY Lamictal, Cymbalta, [place], Abilify HTN Stable Resume Losartan Continue PRN hydralazine MARIA R Continue to use patient's CPAP GI PROPHYLAXIS Pantoprazole DVT PROPHYLAXIS Xarelto Please refer to Dr. 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 Discussed with ZURI Garcia and agree with findings and plan as documented in the note. Any exceptions or clarifications are listed here: Patient feeling better, she is coughing a bit is nonproductive. Afebrile. VSS Morbidly obese, no acute distress RRR no MGR Scattered expiratory wheezes, positive rhonchi in the left lower and middle lung crowe Abdomen soft, nontender nondistended, morbidly obese Extremities trace pitting edema bilaterally 60-year-old morbidly obese female with status post TKA, also with diabetes mellitus, obstructive sleep apnea on CPAP, and asthma, here with post operative acute hypoxemic respiratory failure likely secondary to developing left sided pneumonia. She may also have some component of restrictive lung disease given morbid obesity. -Agree with starting Levaquin and should continue a 7 day course after discharge -Encourage incentive spirometry and will add albuterol nebulizers for wheezing today given her history of asthma -Orthopedic postoperative management as per orthopedics -Xarelto for DVT prophylaxis Documented By: Melanie Cornelius (Melanie Cornelius MD)
--- NOTE | 2016-09-03 14:31 | DIAGNOSTIC IMAGING REPORT ---
CHEST 2 VIEWS ROUTINE HISTORY: Hypoxia. Persistent SOB COMPARISON: Chest 09/02/2016. FINDINGS: The heart remains mildly enlarged. Patchy airspace opacities within the left mid to lower lung zone are again noted. No pleural effusions. No pneumothorax orsly". IMPRESSION: Patchy airspace opacities within the left mid to lower lung zone are again noted. This likely represents a pneumonia. Recommend one month chest x-ray follow-up to ensure resolution. Electronically signed by: Elmer Barr M.D. 09/03/2016 2:30 PM Dictated Date/Time: 09/03/2016 2:28 PM
[2016-09-03 14:54] VITALS: BP 111/68; PULSE 70; TEMP 37.1; O2SAT 98
[2016-09-03] MEDS ORDERED: NURSING VERBAL MED ORDER ONE (15:00)
[2016-09-03] MEDS: LEVOFLOXACIN 750 MG TAB PO SCH (15:58)
[2016-09-03] MEDS: RIVAROXABAN 10 MG TAB PO SCH (17:47)
[2016-09-03] MEDS: CHOLECALCIFEROL 1000 INTER.UNIT TAB PO SCH (17:48)
[2016-09-03 19:28] VITALS: PULSE 82; O2SAT 97
[2016-09-03] MEDS: ALBUT/IPRATROP 3MG/0.5MG NEB 3 ML VIAL INH SCH (19:28)
[2016-09-03] MEDS: ATORVASTATIN 10 MG TAB PO SCH (21:40)
[2016-09-03 23:15] VITALS: BP 128/67; PULSE 73; TEMP 36.6; O2SAT 98
[2016-09-04 05:52] LABS: BASO % 0.2 %; BASO ABS # 0.02 K/uL (0-0.2); COMPLETE YES; EOS % 2.2 %; HEMATOCRIT 30.2 % (37-47); IG% 0.3 %; LYMPH % 9.6 %; LYMPH ABS # 1.13 K/uL (1.2-3.4); MEAN CELL VOLUME 89.3 fL (80-100); MEAN CORPUSCULAR HEMOGLOBIN 28.1 pg (25-34); MEAN CORPUSCULAR HGB CONC 31.5 g/dl (32-36); MEAN PLATELET VOLUME 8.5 fL (7.4-10.4); MONO % 6.5 %; NEUT % 81.2 %; PLATELET COUNT 243 K/uL (130-400); RED BLOOD COUNT 3.38 M/uL (4.2-5.4); WHITE BLOOD COUNT 11.78 K/uL (4.8-10.8)
[2016-09-04] MEDS: ACETAMINOPHEN 500 MG TAB PO SCH (06:10)
[2016-09-04 06:24] LABS: BUN/CREATININE RATIO 22.8 (10-20); CALCIUM 8.9 mg/dl (8.5-10.1); CREATININE 0.92 mg/dl (0.60-1.20); POTASSIUM 4.6 mmol/L (3.5-5.1)
[2016-09-04 07:30] VITALS: BP 108/66; PULSE 64; TEMP 36.6; O2SAT 100
[2016-09-04 07:49] VITALS: PULSE 68; O2SAT 92
[2016-09-04] MEDS: ALBUT/IPRATROP 3MG/0.5MG NEB 3 ML VIAL INH SCH (07:49)
--- NOTE | 2016-09-04 07:52 | Orthopedic Progress Note ---
Orthopedic Progress Note Date of Service Sep 04, 2016. Subjective Post OP Day: 4 Reports: feeling well, pain controlled w PO medications, Denies: calf pain, chest pain, complaints, light headedness, nausea / vomiting Additional Notes: Continues to report feeling better. Continues hypoxia, increased WBC's yesterday, on Levofloxacin now per medicine. WBC's down, 11.78 this AM Sats at 98-100% on 2L O2 per NC Knee feeling well Objective calves soft nontender, N/V intact, capillary refill less than 2 sec., dressing C /D/I, A&O x3, toes mobile Silverlon in tact. Date Time Temp Pulse Resp B/P Pulse Ox O2 Delivery O2 Flow Rate FiO2 09/04/16 07:30 36.6 64 20 108/66 100 Nasal Cannula 2.0 09/04/16 00:00 Nasal Cannula 2.0 09/03/16 23:15 36.6 73 20 128/67 98 Nasal Cannula 2.0 09/03/16 19:28 82 14 97 Nasal Cannula 2.0 09/03/16 15:50 Nasal Cannula 2.0 09/03/16 14:54 37.1 70 20 111/68 98 Room Air 09/03/16 07:48 36.6 79 20 99/59 92 Room Air Laboratory Results 24 Hours: Test 09/04/16 05:25 White Blood Count 11.78 K/uL Red Blood Count 3.38 M/uL Hemoglobin 9.5 g/dL Hematocrit 30.2 % Mean Corpuscular Volume 89.3 fL Mean Corpuscular Hemoglobin 28.1 pg Mean Corpuscular Hemoglobin Concent 31.5 g/dl Platelet Count 243 K/uL Mean Platelet Volume 8.5 fL Neutrophils (%) (Auto) 81.2 % Lymphocytes (%) (Auto) 9.6 % Monocytes (%) (Auto) 6.5 % Eosinophils (%) (Auto) 2.2 % Basophils (%) (Auto) 0.2 % Neutrophils # (Auto) 9.57 K/uL Lymphocytes # (Auto) 1.13 K/uL Monocytes # (Auto) 0.76 K/uL Eosinophils # (Auto) 0.26 K/uL Basophils # (Auto) 0.02 K/uL Assessment & Plan Assessment: POD #4, Right TKA Plan: PT/ OT DVT proph- Xarelto D/C planning- Rehab when bed avail and cleared by medicine. Appreciate medicine input Inhouse Planning Pain Management: Celebrex, Oxycontin, Morphine, PO Tylenol, Oxy IR DVT Prophylaxis: TEDs, SCDs, Xarelto Discharge Planning Discharge Planning: rehab hospital Pain Management: Celebrex, Oxycontin, PO Tylenol, Oxy IR DVT Prophylaxis: TEDs, SCDs, Xarelto Therapy: Physical Therapy, Occupational Therapy
[2016-09-04] MEDS ORDERED: LVQ500 PO (07:55)
[2016-09-04] MEDS: MOMETASONE/FORMOTEROL (DULERA) INH INH SCH (08:36)
[2016-09-04] MEDS: LUBIPROSTONE 8 MCG CAP PO SCH (08:36)
[2016-09-04] MEDS: ARIPIprazole TAB 10 MG TAB PO SCH (08:37)
[2016-09-04] MEDS: DOCUSATE SODIUM 100 MG CAP PO SCH (08:38)
[2016-09-04] MEDS: DULOXETINE HCL 60 MG CAP PO SCH (08:38)
[2016-09-04] MEDS: CeleBREX 200 MG CAP PO SCH (08:38)
[2016-09-04] MEDS: MULTIVITAMIN TAB PO SCH (08:39)
[2016-09-04] MEDS: OXYBUTYNIN CHLORIDE 5 MG TAB PO SCH (08:39)
[2016-09-04] MEDS: PANTOprazole SOD 40 MG TAB PO SCH (08:39)
[2016-09-04] MEDS: LITHIUM CARBONATE 450 MG TABCR PO SCH (08:39)
--- NOTE | 2016-09-04 09:50 | DIAGNOSTIC IMAGING REPORT ---
CHEST 2 VIEWS ROUTINE CLINICAL HISTORY: Pneumonia. Hypoxia. COMPARISON STUDY: Chest radiograph September 03, 2016. FINDINGS: There is no pneumothorax or pleural effusion. Asymmetric left lung airspace opacities persist. Right lung is clear. Mild cardiomegaly is unchanged. There's no evidence of pulmonary edema. IMPRESSION: Persistent left lung airspace opacities which favor pneumonia. Electronically signed by: Diaz Garcia M.D. 09/04/2016 9:48 AM Dictated Date/Time: 09/04/2016 9:47 AM
[2016-09-04 10:13] VITALS: O2SAT 97
[2016-09-04] MEDS: LEVOFLOXACIN 750 MG TAB PO SCH (10:54)
[2016-09-04 11:07] VITALS: BP 108/66; PULSE 68; TEMP 36.6; O2SAT 92
--- NOTE | 2016-09-04 11:25 | Hospitalist Progress Note ---
Hospitalist Progress Note Date of Service Sep 04, 2016. (José Garcia PA-C) Subjective Pt evaluation today including: conversation w/ patient, physical exam, chart review, lab review, review of studies Pain: Controlled Voiding: no voiding problems Patient doing much better today and much more awake. No sputum production. Continues to need supplemental O2 with exertion. Had trouble with CPAP last night secondary to new mask. No NOWAK with ambulation this morning. No fever or chills. No difficulty with insulin pump or dosing. Feels ready for discharge to [facility]. No acute complaints or problems Additional Comments: A total of 12 systems was reviewed and is negative other than as listed above in the HPI All Other Systems: Reviewed and Negative (José Garcia PA-C) Medications Current Inpatient Medications Medications (Trade) Dose Ordered Sig/Mable Route Start Time Stop Time Status Last Admin Dose Admin Aripiprazole (Abilify Tab) 10 mg QAM PO 09/01/16 09:00 10/01/16 08:59 09/04/16 08:37 10 MG Atorvastatin Calcium (Lipitor Tab) 10 mg QPM PO 08/31/16 21:00 09/30/16 20:59 09/03/16 21:40 10 MG Duloxetine HCl (Cymbalta Cap) 60 mg QAM PO 09/01/16 09:00 10/01/16 08:59 09/04/16 08:38 60 MG Lamotrigine (Lamictal Tab) 100 mg QAM PO 09/01/16 09:00 10/01/16 08:59 09/04/16 08:39 100 MG Lamotrigine (Lamictal Tab) 200 mg HS PO 08/31/16 21:00 09/30/16 20:59 09/03/16 21:40 200 MG Losartan Potassium (coZAAR TAB) 25 mg QAM PO 09/01/16 09:00 10/01/16 08:59 Future Hold Magnesium Citrate (Citrate Of Magnesia Soln) 296 ml DAILY PRN PO 08/31/16 09:30 09/30/16 09:29 Oxybutynin Chloride (Ditropan Tab) 10 mg BID PO 08/31/16 21:00 09/30/16 20:59 09/04/16 08:39 10 MG Cholecalciferol (Vitamin D Tab) 5,000 inter.unit DAILY@1900 PO 08/31/16 19:00 09/30/16 18:59 09/03/16 17:48 5,000 INTER.UNIT [place] Carbonate (Eskalith Cr Tab) 450 mg BID PO 08/31/16 21:00 09/30/16 20:59 09/04/16 08:39 450 MG Lubiprostone (Amitiza) 24 mcg BIDM PO 08/31/16 17:45 09/30/16 17:44 09/04/16 08:36 24 MCG Polyethylene (Miralax Powder Packet) 17 gm DAILY PRN PO 08/31/16 10:30 09/30/16 10:29 Celecoxib (CeleBREX CAP) 200 mg BID PO 08/31/16 21:00 09/30/16 20:59 09/04/16 08:38 200 MG Acetaminophen (Tylenol Tab) 650 mg Q6H PRN PO 08/31/16 09:30 09/30/16 09:29 Magnesium Hydroxide (Milk Of Magnesia Susp) 30 ml Q6H PRN PO 08/31/16 09:30 09/30/16 09:29 09/02/16 20:44 30 ML Bisacodyl (Dulcolax Supp) 10 mg DAILY PRN [place] 08/31/16 09:30 09/30/16 09:29 Sodium Biphosphate/ Sodium Phosphate (Fleet Enema) 132 ml DAILY PRN [place] 08/31/16 09:30 09/30/16 09:29 Docusate Sodium (coLACE CAP) 100 mg BID PO 08/31/16 21:00 09/30/16 20:59 09/04/16 08:38 100 MG Diphenhydramine HCl (Benadryl Cap) 25 mg Q8H PRN PO 08/31/16 09:30 09/30/16 09:29 Zolpidem Tartrate (Ambien Tab) 5 mg HSZ PRN PO 08/31/16 09:30 09/30/16 09:29 Multivitamins (Multivitamin Tab) 1 tab QAM PO 09/01/16 09:00 10/01/16 08:59 09/04/16 08:39 1 TAB Ondansetron HCl (Zofran Inj) 4 mg Q6H PRN IV 08/31/16 09:30 09/30/16 09:29 Pantoprazole Sodium (Protonix Tab) 40 mg QAM PO 09/01/16 09:00 10/01/16 08:59 09/04/16 08:39 40 MG Tramadol HCl (Ultram Tab) 1 tablet for pain rating... Q4H PRN PO 08/31/16 09:30 09/30/16 09:29 09/03/16 15:59 50 MG Rivaroxaban (Xarelto Tab) 10 mg Q24H PO 08/31/16 17:30 09/11/16 17:31 09/03/16 17:47 10 MG Glucose (Glucose 40% Gel) UD PRN PO 08/31/16 11:00 09/30/16 10:59 Glucose (Glucose Chew Tab) 1 tabs UD PRN PO 08/31/16 11:00 09/30/16 10:59 Glucagon (Glucagon Inj) 1 mg UD PRN SQ 08/31/16 11:00 09/30/16 10:59 Dextrose (Dextrose 50% 50ML Syringe) 50 ml UD PRN IV 08/31/16 11:00 09/30/16 10:59 Hydralazine HCl (HydrALAZINE INJ) 10 mg Q6H PRN IV. 08/31/16 12:00 09/30/16 11:59 Mometasone Furoate/ Formoterol Fumar (Dulera 100-5 Mcg/Act) 2 puffs BID INH 08/31/16 21:00 09/30/16 20:59 09/04/16 08:36 2 PUFFS Acetaminophen (Tylenol Tab) 1,000 mg Q8@0600,1400,2200 PO 09/02/16 15:00 10/02/16 14:59 09/04/16 06:10 1,000 MG Miscellaneous Information (Consult Glycemic Management Pharmacy) 1 ea UD PRN N/A 09/02/16 20:11 10/02/16 20:10 Insulin Human Lispro (HumaLOG INSULIN PUMP) 1 ea ACHS N/A 09/03/16 12:00 10/03/16 11:59 09/04/16 08:00 1 EA Insulin Human Lispro (humaLOG) SLIDING SCALE PRN PRN SC 09/03/16 11:45 10/03/16 11:44 Levofloxacin (Levaquin Tab) 750 mg DAILY@11 PO 09/03/16 15:30 09/10/16 15:29 09/04/16 10:54 750 MG Albuterol/ Ipratropium (Combivent Respimat Inh) 1 puffs QID INH 09/04/16 12:00 10/04/16 11:59 (José Garcia PA-C) Objective Vital Signs Date Time Temp Pulse Resp B/P Pulse Ox O2 Delivery O2 Flow Rate FiO2 09/04/16 11:07 36.6 68 14 92 Room Air Nasal Cannula 09/04/16 07:49 68 14 92 Nasal Cannula 2.0 09/04/16 07:30 36.6 64 20 108/66 100 Nasal Cannula 2.0 09/04/16 00:00 Nasal Cannula 2.0 09/03/16 23:15 36.6 73 20 128/67 98 Nasal Cannula 2.0 09/03/16 19:28 82 14 97 Nasal Cannula 2.0 09/03/16 15:50 Nasal Cannula 2.0 09/03/16 14:54 37.1 70 20 111/68 98 Room Air (José Garcia-C) Physical Exam Notes: Vital Signs - as noted below Laboratory Data - as noted below Physical Exam: General - NAD Eyes - No icterus, gaze conjugate ENT - Mucosa moist, no lesions or candidiasis Neck - Supple, No JVD Lungs - No bronchospasm, rales, or rhonchi. Better aeration this morning. Tolerating incentive spirometer Heart - Regular, rate controlled Abdomen - Soft, NT, ND, BS present Extremities - No edema, pedal pulses intact Neuro - A&OX3 (José Garcia-C) Laboratory Results Last 24 Hours Test 09/03/16 13:36 09/03/16 15:02 09/03/16 16:56 09/03/16 20:23 Bedside Glucose 178 mg/dl 142 mg/dl 110 mg/dl 106 mg/dl Test 09/04/16 05:25 09/04/16 08:02 White Blood Count 11.78 K/uL Red Blood Count 3.38 M/uL Hemoglobin 9.5 g/dL Hematocrit 30.2 % Mean Corpuscular Volume 89.3 fL Mean Corpuscular Hemoglobin 28.1 pg Mean Corpuscular Hemoglobin Concent 31.5 g/dl Platelet Count 243 K/uL Mean Platelet Volume 8.5 fL Neutrophils (%) (Auto) 81.2 % Lymphocytes (%) (Auto) 9.6 % Monocytes (%) (Auto) 6.5 % Eosinophils (%) (Auto) 2.2 % Basophils (%) (Auto) 0.2 % Neutrophils # (Auto) 9.57 K/uL Lymphocytes # (Auto) 1.13 K/uL Monocytes # (Auto) 0.76 K/uL Eosinophils # (Auto) 0.26 K/uL Basophils # (Auto) 0.02 K/uL RDW Standard Deviation 49.7 fL RDW Coefficient of Variation 15.3 % Immature Granulocyte % (Auto) 0.3 % Immature Granulocyte # (Auto) 0.04 K/uL Sodium Level 139 mmol/L Potassium Level 4.6 mmol/L Chloride Level 104 mmol/L Carbon Dioxide Level 33 mmol/L Anion Gap 2.0 mmol/L Blood Urea Nitrogen 21 mg/dl Creatinine 0.92 mg/dl Est Creatinine Clear Calc Drug Dose 86.7 ml/min Estimated GFR () 77.9 Estimated GFR (Non- 67.2 BUN/Creatinine Ratio 22.8 Random Glucose 59 mg/dl Calcium Level 8.9 mg/dl Procalcitonin 0.14 ng/ml Bedside Glucose 74 mg/dl (José Garcia PA-C) Assessment and Plan TOTAL RIGHT KNEE ARTHROPLASTY Dr. Downs Seen by ortho this morning - D/C orders placed for [facility] Discharge to [facility] today HYPOXIA CXR with increased consolidation on left yesterday - CXR improved this morning Procalcitonin negative which suggests atelectasis Day #2 Levofloxacin 750 mg PO - Continue for a total of 5 days. Rx written and given to patient on discharge Continue supplemental O2 but titrate as tolerated Continue incentive spirometry DM TYPE II Patient to continue with insulin pump Outpatient f/u with endocrinology DEPRESSION/ANXIETY Lamictal, Cymbalta, [place], Abilify HTN Stable Continue Losartan MARIA R Continue to use patient's CPAP GI PROPHYLAXIS Pantoprazole DVT PROPHYLAXIS Xarelto Disposition: OK for discharge to [facility]. Continue a total of 5 days of Levofloxacin 750mg PO Daily. Rx written. Continue incentive spirometry Titrate O2 off as tolerated Continue CPAP HS Thank you for including us in the care of this patient. Please refer to Dr. Bernal's addendum for further recommendations Continued [facility] stay due to: other (None) Discharge planning: rehab hospital (OK to discharge to [facility] from a medicine perspective) (José Garcia PA-C) History Patient was discharged before I could see her. I discussed the case with ZURI Garcia and developed the plan of care. (Melanie Cornelius MD)
[2016-09-04] MEDS ORDERED: IPRATROPIUM BROMIDE/ALBUTEROL respimat INH INH SCH (12:00)
--- NOTE | 2016-09-15 19:30 | DISCHARGE SUMMARY ---
This is a 60-year-old female patient of Dr. oDwns'daija complaining of chronic right knee pain, long-standing, progressively getting worse. She was diagnosed with end-stage osteoarthritis and elected to proceed with a right total knee arthroplasty. PAST MEDICAL HISTORY: Hypertension, hypercholesterolemia, asthma, COPD, sleep apnea severe with the use of CPAP, depression, neuropathy, diabetes with insulin, osteoarthritis, spine problems, sciatica, obesity, dental issues, fatty liver disease and history of basal cell carcinoma. POSTOPERATIVE COURSE: The patient underwent a right total knee arthroplasty on 08/31/2016. Postoperatively, she became severely hypoxic. ABG analysis made the diagnosis. The patient required 6 liters of oxygen for the first two days postoperatively. She was diagnosed with atelectasis with left-sided pneumonia per x-ray examination. Lower extremity Doppler was negative for DVT. She was subsequently put on Levaquin, nebulizers and oxygen for her postoperative stay. She did improve per x-ray analysis before she left. Her oxygen saturations were doing very well; above 93% on two liters of oxygen on discharge. The patient had significant improvement upon discharge, but still required two liters of oxygen per nasal cannula. PHYSICAL EXAMINATION ON DISCHARGE: Right knee Silverlon dressing was clean, dry and intact. There was no redness or drainage. There was no calf tenderness. Neurologically and neurovascularly she is intact in her right lower extremity. DIAGNOSES: Status post left total knee arthroplasty with postoperative hypoxia and left-sided pneumonia. She also has a history of hypertension, hypercholesterolemia, asthma, chronic obstructive pulmonary disease, sleep apnea with CPAP, depression, neuropathy, diabetes mellitus, osteoarthritis, spine problems, sciatica, obesity, dental issues, fatty liver disease and basal cell carcinoma. PLAN: The patient was transferred to [facility]. She will continue supplemental oxygen, currently on two liters per nasal cannula. She will continue her Levaquin for approximately 7 days for her left-sided pneumonia. She will continue nebulizers as needed. She will continue her right knee total knee arthroplasty protocol, pain control and DVT prophylaxis in the form of Xarelto. The patient will follow up with her pulmonary doctor and family physician as needed as an outpatient over the next week. She will follow up with Dr. Downs as scheduled.
== END 2016-09-04 12:08 | DRG 470 ==
LOC: ENRESERVTM → ENRESERVDT → C.ACU 04:57 → C.3E 06:50
PROVIDERS: ADMIT Orthopaedic Surgery Sports Medicine; ATTEND Orthopaedic Surgery Sports Medicine
PROC: 0SRC0J9 Replacement of Right Knee Joint with Synthetic Substitute, Cemented, Open Approach (ICD-10-PCS; principal; 2016-08-31 07:00)
DX: M17.11 Unilateral primary osteoarthritis, right knee (principal); Z68.41 Body mass index [BMI] 40.0-44.9, adult; J98.11 Atelectasis; I10 Essential (primary) hypertension; E78.00 Pure hypercholesterolemia, unspecified; J44.9 Chronic obstructive pulmonary disease, unspecified; G47.30 Sleep apnea, unspecified; F32.9 Major depressive disorder, single episode, unspecified; E11.9 Type 2 diabetes mellitus without complications; R32 Unspecified urinary incontinence; K59.00 Constipation, unspecified; E66.01 Morbid (severe) obesity due to excess calories; Z79.4 Long term (current) use of insulin; Z79.899 Other long term (current) drug therapy; Z79.82 Long term (current) use of aspirin; Z96.41 Presence of insulin pump (external) (internal)

== ENCOUNTER 2016-09-27 14:29 | Emergency (ER) | payer BC ==
[~2016-09-27] VITALS: Ht 167.6 cm; Wt 120.6 kg
[~2016-09-27 14:29] MED LIST changes: -ASPI81TA28 PO; -ATOR10TA82 PO; -CHOL1CAP95 PO; -CLB/200 PO; -DOCU100C31 PO; -HYDR-4079 PO; -LAMO100T16 PO; -LTHSR450 PO; -MULT-506 PO; -OXYC1TAB3 PO; -VNTHFA/IN INH; -ZOLP5TAB6 PO
[2016-09-27 14:31] VITALS: TEMP 36.7; Ht 167.6 cm; Wt 120.6 kg
[2016-09-27 15:15] LABS: BASO % 0.2 %; BASO ABS # 0.02 K/uL (0-0.2); COMPLETE YES; EOS % 2.9 %; IG% 0.2 %; LYMPH ABS # 1.87 K/uL (1.2-3.4); MEAN CELL VOLUME 89.5 fL (80-100); MEAN CORPUSCULAR HEMOGLOBIN 27.4 pg (25-34); MEAN CORPUSCULAR HGB CONC 30.6 g/dl (32-36); MEAN PLATELET VOLUME 8.7 fL (7.4-10.4); MONO % 7.4 %; NEUT % 70.3 %; PLATELET COUNT 317 K/uL (130-400); RED BLOOD COUNT 3.91 M/uL (4.2-5.4); WHITE BLOOD COUNT 9.84 K/uL (4.8-10.8)
[2016-09-27 15:33] LABS: BUN/CREATININE RATIO 15.8 (10-20); CALCIUM 9.2 mg/dl (8.5-10.1); CREATININE 0.75 mg/dl (0.60-1.20); PARTIAL THROMBOPLASTIN RATIO 1.2; POTASSIUM 4.4 mmol/L (3.5-5.1); PROTHROMBIN TIME (PATIENT) 10.7 SECONDS (9.0-12.0)
[2016-09-27] MEDS ORDERED: VNTHFA/IN INH (15:39)
[2016-09-27] MEDS ORDERED: ARIP1TAB8 PO (15:41)
[2016-09-27] MEDS ORDERED: ATOR10TA82 PO (15:42)
[2016-09-27] MEDS ORDERED: MOME200A INH (15:44)
[2016-09-27] MEDS ORDERED: OPTIRAY 320 IV PRN (15:45)
[2016-09-27] MEDS ORDERED: DULO60CA44 PO (15:46)
[2016-09-27] MEDS ORDERED: CHOL1CAP95 PO (15:49)
[2016-09-27] MEDS ORDERED: LAMO100T16 PO (15:51)
[2016-09-27] MEDS ORDERED: LAMO200T38 PO (15:52)
[2016-09-27] MEDS ORDERED: LTHSR450 PO (15:55)
[2016-09-27] MEDS ORDERED: LOSA25TA18 PO (15:58)
[2016-09-27] MEDS ORDERED: MULT-506 PO (15:59)
[2016-09-27] MEDS ORDERED: DTR/5 PO (16:01)
[2016-09-27] MEDS ORDERED: CLB/200 PO (16:04)
[2016-09-27] MEDS ORDERED: POLY335019 PO (16:05)
[2016-09-27] MEDS ORDERED: ZOLP5TAB6 PO (16:07)
[2016-09-27] MEDS ORDERED: OXYC1TAB3 PO (16:09)
[2016-09-27] MEDS ORDERED: HYDR-4079 PO (16:12)
[2016-09-27] MEDS ORDERED: INSPMPHMLG (16:14)
[2016-09-27] MEDS ORDERED: ASPI81TA28 PO (16:16)
[2016-09-27] MEDS ORDERED: DOCU100C31 PO (16:18)
--- NOTE | 2016-09-27 16:26 | DIAGNOSTIC IMAGING REPORT ---
NECK CTA HISTORY: Left carotid bruit. Abnormal ultrasound. TECHNIQUE: Multiaxial CT images of the neck were performed following the intravenous administration of contrast to evaluate the major cervical vessels. Maximum intensity projection images were also obtained. All measurements were calculated based on NASCET criteria. COMPARISON STUDY: Carotid Doppler 09/27/2016. FINDINGS: The aortic arch and proximal great vessels are widely patent. There is no significant stenosis, occlusion, or dissection identified within the bilateral common carotid, internal carotid, or vertebral arteries. A few small thyroid nodules with the largest measuring 7 mm. Mild/moderate degenerative disc disease within the cervical spine. IMPRESSION: No significant stenosis, occlusion, or dissection identified within the carotid or vertebral arteries. Electronically signed by: Elmer Barr M.D. 09/27/2016 4:25 PM Dictated Date/Time: 09/27/2016 4:21 PM
[2016-09-27 16:29] VITALS: BP 130/70; PULSE 80; O2SAT 100
--- NOTE | 2016-09-27 16:44 | EMERGENCY ROOM VISIT NOTE ---
History First contact with patient: 14:40 Chief Complaint: OTHER COMPLAINT Stated Complaint: A SYMPTOMATIC History of Present Illness The patient is a 60 year old female who presents to the Emergency Room being sent here by her family doctor after she had a carotid ultrasound performed at [facility] today. The patient states that she is in physical therapy for a right knee replacement and on September 11 when she was at physical therapy a doctor listened to her neck and heard a bruit. She does not know which side he heard the bruit. An ultrasound of the carotids was scheduled. The patient has not been symptomatic. She denies any headache, dizziness, visual changes, nausea or vomiting. The patient does admit to history of hyperlipidemia but denies any known atherosclerotic disease. Review of Systems 10 system review was performed and was negative unless stated otherwise history of present illness. Past Medical/Surgical History Medical Problems: (1) Depression (2) Hyperlipidemia (3) Hypertension (4) IDDM (insulin dependent diabetes mellitus) (5) Right knee DJD Family History Basal cell carcinoma Cancer Diabetes mellitus Heart disease Hypertension Kidney disease Kidney stones Melanoma Myocardial infarction Social History Smoking Status: Never Smoker Alcohol Use: none Drug Use: none Marital Status: single Housing Status: lives alone Occupation Status: unemployed Current/Historical Medications Scheduled Aripiprazole (Abilify), 10 MG PO QAM Aspirin (Aspirin Ec), 81 MG PO DAILY Atorvastatin (Lipitor), 10 MG PO QPM Celecoxib (CeleBREX), 200 MG PO BID Cholecalciferol (Vitamin D3), 50,000 UNITS PO WK Docusate Sodium (Docusate Sodium), 100 MG PO BID Duloxetine Hcl (Cymbalta), 60 MG PO DAILY Insulin Human Lispro (Insulin Humalog Pump ), 1 EA N/A UD Lamotrigine (Lamictal), 100 MG PO QAM Lamotrigine (Lamictal), 200 MG PO HS [place] Carbonate ([place] Carbonate ER), 450 MG PO BID Losartan Potassium (Cozaar), 25 MG PO DAILY Mometasone Furoate-Formoterol (Dulera 200/5 Mcg), 2 PUFFS INH BID Multivitamin (Multivitamin), 1 TAB PO DAILY Oxybutynin Chloride (Ditropan), 10 MG PO BID Scheduled PRN Albuterol Hfa (Ventolin Hfa), 2 PUFFS INH Q4H PRN for SOB/Wheezing Hydrocodone/Acetaminophen 10MG/325MG ([place] 10MG/325MG), 1 TAB PO QID PRN for Pain Oxycodone Ir (Roxicodone Ir), 5 MG PO Q4H PRN for Severe Pain Polyethylene Glycol 3350 (Miralax), 17 GM PO DAILY PRN for Constipation Zolpidem Tartrate (Zolpidem Tartrate), 5 MG PO HS PRN for Sleep Allergies Coded Allergies: Meloxicam (Unverified Allergy, Unknown, hives, cELEBREX IS OK PER PT., ) Lisinopril (Verified Adverse Reaction, Intermediate, COUGH, 08/31/16) Physical Exam Vital Signs Date Time Temp Pulse Resp B/P Pulse Ox O2 Delivery O2 Flow Rate FiO2 09/27/16 16:29 80 20 130/70 100 Room Air 09/27/16 15:01 73 09/27/16 14:54 75 18 123/60 98 Room Air 129/65 09/27/16 14:31 36.7 79 18 130/88 99 Room Air Physical Exam GENERAL: Obese 60-year-old white female appears in no acute distress. The patient is ambulating with a walker. MENTAL Status: Alert and oriented 3. NECK: Supple, no lymphadenopathy noted. Left carotid bruit noted LUNGS: Clear auscultation without wheezes rales or rhonchi. CARDIAC: Regular rate and rhythm without murmur. Pulses is full and equal throughout. ABDOMEN: Positive bowel sounds all 4 quadrants. Soft, nontender to palpation without organomegaly or masses. Medical Decision & Procedures ER Provider Diagnostic Interpretation: NECK CTA HISTORY: Left carotid bruit. Abnormal ultrasound. TECHNIQUE: Multiaxial CT images of the neck were performed following the intravenous administration of contrast to evaluate the major cervical vessels. Maximum intensity projection images were also obtained. All measurements were calculated based on NASCET criteria. COMPARISON STUDY: Carotid Doppler 09/27/2016. FINDINGS: The aortic arch and proximal great vessels are widely patent. There is no significant stenosis, occlusion, or dissection identified within the bilateral common carotid, internal carotid, or vertebral arteries. A few small thyroid nodules with the largest measuring 7 mm. Mild/moderate degenerative disc disease within the cervical spine. IMPRESSION: No significant stenosis, occlusion, or dissection identified within the carotid or vertebral arteries. Electronically signed by: Elmer Barr M.D. 09/27/2016 4:25 PM Laboratory Results 09/27/16 14:45 Red Blood Count 3.91, Mean Corpuscular Volume 89.5, Mean Corpuscular Hemoglobin 27.4, Mean Corpuscular Hemoglobin Concent 30.6, Mean Platelet Volume 8.7, Neutrophils (%) (Auto) 70.3, Lymphocytes (%) (Auto) 19.0, Monocytes (%) (Auto) 7.4, Eosinophils (%) (Auto) 2.9, Basophils (%) (Auto) 0.2, Neutrophils # (Auto) 6.91, Lymphocytes # (Auto) 1.87, Monocytes # (Auto) 0.73, Eosinophils # (Auto) 0.29, Basophils # (Auto) 0.02 09/27/16 14:45 Test 09/27/16 14:45 09/27/16 16:24 White Blood Count 9.84 K/uL (4.8-10.8) Red Blood Count 3.91 M/uL (4.2-5.4) Hemoglobin 10.7 g/dL (12.0-16.0) Hematocrit 35.0 % (37-47) Mean Corpuscular Volume 89.5 fL (80-100) Mean Corpuscular Hemoglobin 27.4 pg (25-34) Mean Corpuscular Hemoglobin Concent 30.6 g/dl (32-36) Platelet Count 317 K/uL (130-400) Mean Platelet Volume 8.7 fL (7.4-10.4) Neutrophils (%) (Auto) 70.3 % Lymphocytes (%) (Auto) 19.0 % Monocytes (%) (Auto) 7.4 % Eosinophils (%) (Auto) 2.9 % Basophils (%) (Auto) 0.2 % Neutrophils # (Auto) 6.91 K/uL (1.4-6.5) Lymphocytes # (Auto) 1.87 K/uL (1.2-3.4) Monocytes # (Auto) 0.73 K/uL (0.11-0.59) Eosinophils # (Auto) 0.29 K/uL (0-0.5) Basophils # (Auto) 0.02 K/uL (0-0.2) RDW Standard Deviation 49.5 fL (36.4-46.3) RDW Coefficient of Variation 15.1 % (11.5-14.5) Immature Granulocyte % (Auto) 0.2 % Immature Granulocyte # (Auto) 0.02 K/uL (0.00-0.02) Prothrombin Time 10.7 SECONDS (9.0-12.0) Prothromb Time International Ratio 1.0 (0.9-1.1) Activated Partial Thromboplast Time 30.8 SECONDS (21.0-31.0) Partial Thromboplastin Ratio 1.2 Anion Gap 6.0 mmol/L (3-11) Est Creatinine Clear Calc Drug Dose 104.2 ml/min Estimated GFR () 99.7 Estimated GFR (Non- 86.0 BUN/Creatinine Ratio 15.8 (10-20) Calcium Level 9.2 mg/dl (8.5-10.1) Bedside Glucose 99 mg/dl (70-90) ED Course The patient was evaluated. The patient's EMR and medication list was reviewed. I reviewed the patient's carotid ultrasound which there was concern for a dissection and a CTA of the neck was recommended. IV access was obtained. CBC and differential, coags and renal profile was obtained. The patient's labs are reviewed. The patient's hemoglobin and hematocrit were slightly low. Renal profile and coags were unremarkable. CT angiogram of the neck was ordered and interpreted by the radiologist as above without any evidence of stenosis, dissection, or occlusion. The patient was informed of the findings and discharged home in stable condition. Medical Decision The patient was asymptomatic but wa was sent here specifically for a CTA of the neck to evaluate for dissection. Therefore a CTA was performed. Since this is completely normal the patient was discharged home. Impression Primary Impression: Abnormal carotid ultrasound Additional Impression: Anemia Departure Information Dispostion Home / Self-Care Condition GOOD Referrals RV. Santana MD (PCP) Forms HOME CARE DOCUMENTATION FORM, IMPORTANT VISIT INFORMATION, WORK / SCHOOL INSTRUCTIONS Patient Instructions My [facility] [employer] Additional Instructions Follow-up with your family doctor in 2-3 days. If you have any other emergent problems please feel free to return to ER. Problem Qualifiers Additional Impression: Anemia Anemia type: unspecified type Qualified Codes: D64.9 - Anemia, unspecified
== END 2016-09-27 16:58 | disposition home or self-care (01) ==
LOC: C.EDB 14:30 → C.EDC 16:58
DX: R93.8 Abnormal findings on diagnostic imaging of other specified body structures (principal); D64.9 Anemia, unspecified; I10 Essential (primary) hypertension; E10.9 Type 1 diabetes mellitus without complications; E78.5 Hyperlipidemia, unspecified; F32.9 Major depressive disorder, single episode, unspecified; Z96.651 Presence of right artificial knee joint; Z96.41 Presence of insulin pump (external) (internal); Z83.3 Family history of diabetes mellitus; Z82.49 Family history of ischemic heart disease and other diseases of the circulatory system; Z84.1 Family history of disorders of kidney and ureter; Z80.8 Family history of malignant neoplasm of other organs or systems; Z79.82 Long term (current) use of aspirin; Z79.899 Other long term (current) drug therapy

== ENCOUNTER → 2016-09-27 | Outpatient (CLI) | payer BC ==
[~2016-09-27] MED LIST changes: -ALBU1AER9 INH; +AMB5 PO; +AMT24 PO; -ASPI81TA21 PO; +ASPI81TA28 PO; +ATOR10TA82 PO; +CHOL1CAP95 PO; +CLB/200 PO; +CLB200 PO; +CLC100 PO; +DIPH25CA50 PO; +DOCU100C31 PO; -DOXY100C76 PO; -ERGO500037 PO; +HYDR-4079 PO; +LAMO100T16 PO; -LINA1CAP2 PO; +LTHSR450 PO; +LVQ500 PO; +MAGN1SOL7 PO; +MOMLX PO; +MULT-506 PO; +MULT-589 PO; +OXYC1TAB3 PO; +OXYSR10 PO; +POLY335019 PO; +PRVHFAIN INH; +RXC5 PO; +TYL325X PO; +VNTHFA/IN INH; +XRL10 PO; +ZOLP5TAB6 PO
--- NOTE | 2016-09-27 14:01 | DIAGNOSTIC IMAGING REPORT ---
ULTRASOUND OF THE CAROTID ARTERIES CLINICAL HISTORY: Carotid bruit.. COMPARISON STUDY: No priors. TECHNIQUE: Real-time, grayscale, and color Doppler sonography of the carotid arteries is performed. Images are reviewed in the transverse and longitudinal planes. FINDINGS: Blood pressure in the right arm measures 121/58 and blood pressure in the left arm measures 126/61. The carotid arteries are patent bilaterally and demonstrate antegrade flow. There is minimal atherosclerotic plaque seen. Normal doppler arterial waveforms are seen throughout. There is a linear echogenic and mobile structure within the lumen of the left common carotid artery. Velocity measurements are listed below. Common carotid peak systolic velocity (cm/sec): RIGHT: 123 LEFT: 116 ICA proximal peak systolic velocity (cm/sec): RIGHT: 137 LEFT: 61 ICA mid peak systolic velocity (cm/sec): RIGHT: 124 LEFT: 75 ICA distal peak systolic velocity (cm/sec): RIGHT: 113 LEFT: 83 ICA/CC peak systolic ratio: RIGHT: 1.1 LEFT: 0.7 Antegrade flow was shown in the vertebral arteries. The external carotid arteries are patent. IMPRESSION: 1. There is a linear, echogenic, and mobile intraluminal structure within the left common carotid artery. This is indeterminant but concerning for dissection. Follow-up with a CT angiogram of the neck is recommended for further assessment. 2. There is no sonographic evidence of hemodynamically significant stenosis in the right or left carotid arterial system. Mildly elevated velocities within the right proximal internal carotid artery are of doubtful significance. There is no luminal narrowing identified and no significant plaque is seen in this region. 3. Antegrade flow is shown in the vertebral arteries. Findings were discussed with physician assistant Grier and the patient was referred to the emergency department for further assessment. Electronically signed by: José Galarza M.D. 09/27/2016 2:00 PM Dictated Date/Time: 09/27/2016 1:46 PM
== END | disposition home or self-care (01) ==
LOC: C.ULTRBC 12:54
PROVIDERS: ATTEND Internal Medicine
DX: R09.89 Other specified symptoms and signs involving the circulatory and respiratory systems (principal); R93.8 Abnormal findings on diagnostic imaging of other specified body structures

== ENCOUNTER → 2016-11-15 | Outpatient (CLI) | payer BC ==
[~2016-11-15] MED LIST changes: -AMB5 PO; -AMT24 PO; +ASPI81TA28 PO; +ATOR10TA88 PO; +CHOL1CAP95 PO; -CHOL1TAB46 PO; +CLB/200 PO; -CLB200 PO; -CLC100 PO; -DIPH25CA50 PO; +DOCU100C31 PO; -DTR/5 PO; +HYDR-4079 PO; -LAMO100T PO; +LAMO100T16 PO; -LITH150C PO; -LPT10 PO; +LTHSR450 PO; -LVQ500 PO; -MAGN1SOL7 PO; -MOMLX PO; +MULT-506 PO; -MULT-589 PO; +OXYB5TAB74 PO; +OXYC1TAB3 PO; -OXYSR10 PO; -PRLSR20 PO; -PRVHFAIN INH; -RXC5 PO; -TYL325X PO; +VNTHFA/IN INH; -XRL10 PO; +ZOLP5TAB6 PO
--- NOTE | 2016-11-15 12:18 | DIAGNOSTIC IMAGING REPORT ---
TWO VIEW CHEST CLINICAL HISTORY: Cough. FINDINGS: PA and lateral chest radiographs are compared to study dated 09/04/2016. Correlation is made with chest CT dated 01/09/2008. The examination is degraded by large body habitus as well as by patient rotation on the PA view. The heart is mildly enlarged. The mediastinal contour is within normal limits. Chronic interstitial thickening is similar to previous. No airspace consolidation or pleural effusion is identified. There is no pneumothorax. The skeletal structures are osteopenic. Degenerative changes noted throughout the thoracic spine. A surgical anchor is present in the left humeral head. Cholecystectomy clips are suggested in the upper abdomen on the lateral view. IMPRESSION: Mild cardiac enlargement with no active disease in the chest. Electronically signed by: José Galarza M.D. 11/15/2016 12:17 PM Dictated Date/Time: 11/15/2016 12:15 PM
== END | disposition home or self-care (01) ==
LOC: C.RAD1850 12:01
PROVIDERS: ATTEND Physician Assistant
DX: R05 Cough (principal)

== ENCOUNTER → 2016-11-15 | Outpatient (CLI) | payer BC ==
[2016-11-15 13:21] LABS: HEMATOCRIT 35.7 % (37-47); MEAN CELL VOLUME 86.2 fL (80-100); MEAN CORPUSCULAR HEMOGLOBIN 27.3 pg (25-34); MEAN CORPUSCULAR HGB CONC 31.7 g/dl (32-36); PLATELET COUNT 243 K/uL (130-400); RED BLOOD COUNT 4.14 M/uL (4.2-5.4)
[2016-11-15 13:47] LABS: ESTIMATED AVERAGE GLUCOSE 117 mg/dl; HA1C FLAG Normal (Normal)
[2016-11-15 13:58] LABS: CREATININE 0.89 mg/dl (0.60-1.20)
== END | disposition home or self-care (01) ==
LOC: C.LAB1850 11:36
PROVIDERS: ATTEND Nurse Practitioner Family
DX: F31.9 Bipolar disorder, unspecified (principal)

== ENCOUNTER → 2017-02-08 | Outpatient (CLI) | payer BC ==
--- NOTE | 2017-02-08 08:14 | MAMMOGRAPHY REPORT ---
BILATERAL DIGITAL SCREENING MAMMOGRAM TOMOSYNTHESIS WITH CAD: 02/08/2017 CLINICAL HISTORY: Routine screening. Patient has no complaints. TECHNIQUE: Breast tomosynthesis in addition to standard 2D mammography was performed. Current study was also evaluated with a Computer Aided Detection (CAD) system. COMPARISON: Comparison is made to exams dated: 02/03/2016 mammogram, 01/21/2015 mammogram, 01/15/2014 m ammogram, 01/14/2013 mammogram, 01/11/2012 mammogram, and 01/03/2011 mammogram - [facility]. BREAST COMPOSITION: There are scattered areas of fibroglandular density in both breasts. FINDINGS: No suspicious masses, calcifications, or areas of architectural distortion are noted in ei ther breast. There has been no significant interval change compared to prior exams. Scattered bilater al benign-appearing calcifications are not significantly changed. Mass with associated biopsy marker clip in the left subareolar breast is stable. Another biopsy marker clip in the left subareolar julia ast is also again noted. IMPRESSION: ACR BI-RADS CATEGORY 2: BENIGN There is no mammographic evidence of malignancy. A 1 year screening mammogram is recommended. The pa tient will receive written notification of the results. Approximately 10% of breast cancers are not detected with mammography. A negative mammographic report should not delay biopsy if a clinically suggestive mass is present. Nohemi Soria M.D. ah/:02/08/2017 07:50:15 [facility] Teacher: Faye Silverio RT(R)(M), [facility] letter sent: Normal 1/2 BI-RADS Code: ACR BI-RADS Category 2: Benign
== END ==
LOC: C.MAMM 07:22
PROVIDERS: ATTEND Obstetrics & Gynecology
DX: Z12.31 Encounter for screening mammogram for malignant neoplasm of breast (principal); R92.2 Inconclusive mammogram

== ENCOUNTER → 2017-04-19 | Outpatient (CLI) | payer BC ==
[~2017-04-19] MED LIST changes: +ATOR10TA82 PO; -ATOR10TA88 PO; +DTR/5 PO; +LAMO200T35 PO; -LAMO200T38 PO; -OXYB5TAB74 PO
[2017-04-19 09:51] LABS: CHOLESTEROL/HDL RATIO 3.1
[2017-04-19 10:06] LABS: ESTIMATED AVERAGE GLUCOSE 148 mg/dl; HA1C FLAG Normal (Normal)
== END | disposition home or self-care (01) ==
LOC: C.LAB1850 06:54
PROVIDERS: ATTEND Psychiatry & Neurology Psychiatry
DX: Z79.899 Other long term (current) drug therapy (principal); E11.49 Type 2 diabetes mellitus with other diabetic neurological complication

== ENCOUNTER → 2017-05-03 | Outpatient (CLI) | payer BC ==
[~2017-05-03] MED LIST changes: +OXYC-90 PO; -OXYC1TAB3 PO
--- NOTE | 2017-05-03 09:20 | DIAGNOSTIC IMAGING REPORT ---
GI SERIES W/AIR ROUTINE CLINICAL HISTORY: K30 [id number]. Chest pain. Dysphagia. COMPARISON STUDY: None FLUOROSCOPY TIME: 1.3 minutes. FINDINGS: Patient initiated swallowing function well. There is moderate esophageal spasm and/or irritability throughout. There is mild gastroesophageal reflux. There are no persistent mucosal lesions. Size configuration stomach are normal. Due to bulb fills well. It is negative for ulceration. Duodenal sweep is unremarkable. IMPRESSION: 1. Diffuse esophageal dysmotility and/or spasm. 2. Mild gastroesophageal reflux. 3. The remainder of the study is normal. 4. Patient ingested the barium tablet easily without obstructive change. The above report was generated using voice recognition software. It may contain grammatical, syntax or spelling errors. Electronically signed by: Ja Rodriguez M.D. 05/03/2017 9:19 AM Dictated Date/Time: 05/03/2017 9:18 AM
== END | disposition home or self-care (01) ==
LOC: C.RAD 08:22
PROVIDERS: ATTEND Internal Medicine
DX: K21.9 Gastro-esophageal reflux disease without esophagitis (principal); K22.4 Dyskinesia of esophagus; R12 Heartburn; R07.9 Chest pain, unspecified

== ENCOUNTER → 2017-05-23 | Outpatient (CLI) | payer OTHER ==
[~2017-05-23] MED LIST changes: -OXYC-90 PO; +OXYC1TAB3 PO
== END | disposition home or self-care (01) ==
LOC: C.PAPS 10:58
PROVIDERS: ATTEND Obstetrics & Gynecology
DX: Z01.419 Encounter for gynecological examination (general) (routine) without abnormal findings (principal)

== ENCOUNTER → 2017-05-31 | Outpatient (CLI) | payer OTHER ==
--- NOTE | 2017-05-31 18:10 | DIAGNOSTIC IMAGING REPORT ---
TWO VIEW CHEST CLINICAL HISTORY: Cough. FINDINGS: PA and lateral chest radiographs are compared to study dated 11/15/2016. Correlation is made with chest CT dated 01/09/2008. The heart is enlarged and there is atherosclerotic calcification of the thoracic aorta. The pulmonary vasculature is noncongested. Chronic interstitial thickening is similar to previous. No airspace consolidation or large pleural effusion is identified. There is no pneumothorax. The skeletal structures are osteopenic. Degenerative change is present in the shoulders and thoracic spine. Cholecystectomy clips are noted. IMPRESSION: Cardiomegaly with no acute cardiopulmonary abnormality. Electronically signed by: José Galarza M.D. 05/31/2017 6:08 PM Dictated Date/Time: 05/31/2017 6:07 PM
== END | disposition home or self-care (01) ==
LOC: C.RAD1850 16:55
PROVIDERS: ATTEND Physician Assistant
DX: R05 Cough (principal)

== ENCOUNTER 2019-10-18 05:31 | Observation (INO) ==
--- NOTE | 2019-10-02 20:45 | PAT Medication Instructions ---
Medication Instructions Date of Service October 02, 2019 Home Medications Medication Instructions Recorded blood sugar diagnostic #300 ea 12/19/18 Novolog U-100 Insulin aspart 100 See Rx Instructions CONTINUOUS 12/20/18 unit/mL subcutaneous solution SUBCUTANEOUS INFUSION DAILY 90 Days #18 vial NS insulin syringe-needle U-100 0.5 #100 ea 12/20/18 mL 31 gauge x 5/16" Trulicity 1.5 mg/0.5 mL 1.5 mg SQ WEEKLY #6 ml NS 01/25/19 subcutaneous pen injector fluticasone 500 mcg-salmeterol 50 1 puffs INH Q12H #60 ea 04/22/19 mcg/dose blistr powdr for inhalation CPAP Machine #1 ea 06/28/19 Dexcom G6 Auto Body Worker #1 ea NS 06/28/19 Dexcom G6 Sensor #3 ea NS 06/28/19 Dexcom G6 Transmitter #1 ea NS 06/28/19 albuterol sulfate 2.5 mg CONTINUOUS NEBULIZATION Q4H PRN atorvastatin 20 mg tablet 20 mg PO QPM cholecalciferol (vitamin D3) 125 mcg (5,000 unit) capsule 5,000 units PO HS docusate sodium 100 mg capsule 100 mg PO BID duloxetine 40 mg capsule,delayed release 40 mg PO QAM ergocalciferol (vitamin D2) 1,250 mcg (50,000 unit) capsule 50,000 units PO WEEKLY insulin aspart U-100 100 unit/mL (3 mL) subcutaneous pen 100 units SQ .COMPLEX losartan 25 mg tablet 25 mg PO QAM naltrexone 50 mg tablet 25 mg PO BID naproxen sodium 220 mg capsule 220 mg PO BID PRN polyethylene glycol 3350 17 gram/dose oral powder 17 gm PO DAILY PRN lamotrigine 100 mg tablet 200 mg PO QAM sertraline 50 mg tablet 50 mg PO QAM Novolog U-100 Insulin aspart 100 unit/mL subcutaneous solution See Rx Instructions CONTINUOUS SUBCUTANEOUS INFUSION DAILY Trulicity 1.5 mg/0.5 mL subcutaneous pen injector 1.5 mg SQ WEEKLY albuterol sulfate 90 mcg/actuation aerosol inhaler 2 puffs INH Q6H PRN cyanocobalamin (vitamin B-12) 3,000 mcg capsule 3,000 mcg PO HS oxybutynin chloride 5 mg tablet 5 mg PO BID fluticasone 500 mcg-salmeterol 50 mcg/dose blistr powdr for inhalation 1 puffs INH Q12H brexpiprazole 0.5 mg tablet 0.5 mg PO QAM lisdexamfetamine 30 mg capsule 30 mg PO QAM aspirin [Aspirin Low Dose] 81 mg PO HS fluticasone propionate [Flonase Allergy Relief] 1 sprays INTNAS BID PRN omeprazole 40 mg PO QPM Continue as directed ergocalciferol (vitamin D2) 1,250 mcg (50,000 unit) capsule 50,000 units PO WEEKLY insulin aspart U-100 100 unit/mL (3 mL) subcutaneous pen 100 units SQ .COMPLEX (if needed for pump failure) Trulicity 1.5 mg/0.5 mL subcutaneous pen injector 1.5 mg SQ WEEKLY ASK your surgeon for instructions naproxen sodium 220 mg capsule 220 mg PO BID PRN DO NOT take the morning of surgery docusate sodium 100 mg capsule 100 mg PO BID losartan 25 mg tablet 25 mg PO QAM polyethylene glycol 3350 17 gram/dose oral powder 17 gm PO DAILY PRN lisdexamfetamine 30 mg capsule 30 mg PO QAM oxybutynin chloride 5 mg tablet 5 mg PO BID Take morning of surgery With a small sip of water, OTHERWISE NOTHING TO EAT OR DRINK AFTER MIDNIGHT: albuterol sulfate 2.5 mg CONTINUOUS NEBULIZATION Q4H PRN (if needed) duloxetine 40 mg capsule,delayed release 40 mg PO QAM lamotrigine 100 mg tablet 200 mg PO QAM sertraline 50 mg tablet 50 mg PO QAM albuterol sulfate 90 mcg/actuation aerosol inhaler 2 puffs INH Q6H PRN (use if needed; please bring with you to hospital day of surgery if possible) fluticasone 500 mcg-salmeterol 50 mcg/dose blistr powdr for inhalation 1 puffs INH Q12H brexpiprazole 0.5 mg tablet 0.5 mg PO QAM fluticasone propionate [Flonase Allergy Relief] 1 sprays INTNAS BID PRN (if needed) Take evening before surgery albuterol sulfate 2.5 mg CONTINUOUS NEBULIZATION Q4H PRN (if needed) atorvastatin 20 mg tablet 20 mg PO QPM cholecalciferol (vitamin D3) 125 mcg (5,000 unit) capsule 5,000 units PO HS docusate sodium 100 mg capsule 100 mg PO BID polyethylene glycol 3350 17 gram/dose oral powder 17 gm PO DAILY PRN (if needed) albuterol sulfate 90 mcg/actuation aerosol inhaler 2 puffs INH Q6H PRN (if needed) cyanocobalamin (vitamin B-12) 3,000 mcg capsule 3,000 mcg PO HS oxybutynin chloride 5 mg tablet 5 mg PO BID fluticasone 500 mcg-salmeterol 50 mcg/dose blistr powdr for inhalation 1 puffs INH Q12H aspirin [Aspirin Low Dose] 81 mg PO HS fluticasone propionate [Flonase Allergy Relief] 1 sprays INTNAS BID PRN (if needed) omeprazole 40 mg PO QPM Insulin Dependent Diabetic Patients For insulin pump, morning of the surgery- set insulin pump to basal setting. Do not bolus. Other Notes Await preoperative instructions from anesthesia team: naltrexone 50 mg tablet 25 mg PO BID If you have any questions please call us at [phone] or [phone] or [phone] or [phone]
--- NOTE | 2019-10-03 08:12 | Anesthesiology Consultation ---
Date of Service October 03, 2019 Assessment & Plan (1) Encounter for pre-operative examination: Per PAT assessment on 10/02: Travel screen negative. No known COVID-19 positive contacts. No history of COVID-19 testing. No current COVID-19 related symptoms. - Check BSG AM DOS - Anxious RE: surgery/intubation- requesting anxiolytic prior to surgery if possible. - Hx difficult intubation: Hx awake FOB with right shoulder surgery in 2012 ([facility]). Subsequently, patient had cholecystectomy 08/01/13 at [facility]. Per anesthesia difficult airway alert form: Mask ventilation "marginally effective using oral airway + 2 providers..Able to get grade I view after topicalization or sedation using Glidescope awake but unable to negotiate tube through cords due to limited oral opening (inadequate room in mouth to maneuver tube) + anterior glottis. Still unable to intubate using Glidescope + fiberoptic bronchoscope as intubating stylet.. In future, recommend awake intubation using Glidescope + fiberoptic bronchoscope as noted above, or typical awake fiberoptic (patient intubated in this manner previously)." Case reviewed with Dr. Ward. OR made aware to make patient first case. Received message from Pati at surgeon's office (after patient's PAT visit) that surgeon is requesting consideration for patient be done with spinal anesthesia. Patient had Right TKA: 08/31/16: SAB x1 attempt at L3-L4 + PNB at [facility]. Pati was advised that anesthesiologist, surgeon and patient will discuss further AM DOS regarding anesthetic type decision. Chart Review Chart Review: Acceptable Risk for Surgery and Patient seen in Pre Admission Testing Teaching & Discussion Pre-Anesthesia Teaching/Discussion Notes: Instructed NPO after midnight before surgery,except medications with 15 cc of water. Medication instructions provided according to the PAT guidelines. History Surgery Operation Date: 10/18/19 09:20 Proposed Procedures p Hysteroscopy - Fior Shearer MD, FACOG s Dilation and Curettage, Possible Polypectomy - Fior Shearer MD, FACOG Height/Weight Height: 5 ft 6.5 in Weight: 127.1 kg Allergies Allergy/AdvReac Type Severity Reaction Status Date / Time lurasidone [From Latuda] Allergy Intermediate Severe Verified 10/03/19 12:15 restless legs true Allergy Intermediate Hives Verified 10/03/19 12:15 meloxicam Allergy Intermediate Hives Verified 10/02/19 12:10 vortioxetine Allergy Intermediate Taste Verified 10/02/19 12:10 [From Trintellix] Sense Altered lisinopril AdvReac Intermediate Cough Verified 10/03/19 12:15 Medications Home Medications Medication Instructions Recorded Confirmed Last Taken albuterol sulfate 2.5 mg CONTINUOUS NEBULIZATION Q4H 11/29/18 10/02/19 Unknown PRN #1 ml atorvastatin 20 mg tablet 20 mg PO QPM tab 11/29/18 10/02/19 Unknown cholecalciferol (vitamin D3) 125 5,000 units PO HS #30 cap 11/29/18 10/02/19 Unk nown mcg (5,000 unit) capsule docusate sodium 100 mg capsule 100 mg PO BID cap 11/29/18 10/02/19 Unknown duloxetine 40 mg capsule,delayed 40 mg PO QAM cap 11/29/18 10/02/19 Unknown release ergocalciferol (vitamin D2) 1,250 50,000 units PO WEEKLY #12 cap 11/29/18 10/02/19 Unknown mcg (50,000 unit) capsule insulin aspart U-100 100 unit/mL 100 units SQ .COMPLEX ml 11/29/18 10/02/19 Unknown (3 mL) subcutaneous pen losartan 25 mg tablet 25 mg PO QAM #90 tab 11/29/18 10/02/19 Unknown naltrexone 50 mg tablet 25 mg PO BID tab 11/29/18 10/02/19 Unknown naproxen sodium 220 mg capsule 220 mg PO BID PRN 11/29/18 10/02/19 Unknown pen needle, diabetic 32 gauge x #10 ea 11/29/18 09/26/19 Unknown 5/32" polyethylene glycol 3350 17 17 gm PO DAILY PRN 11/29/18 10/02/19 Unknown gram/dose oral powder lamotrigine 100 mg tablet 200 mg PO QAM 12/10/18 10/02/19 Unknown sertraline 50 mg tablet 50 mg PO QAM 12/10/18 10/02/19 Unknown blood sugar diagnostic #300 ea 12/19/18 09/26/19 Unknown Novolog U-100 Insulin aspart 100 See Rx Instructions CONTINUOUS 12/20/18 10/02/19 Unknown unit/mL subcutaneous solution SUBCUTANEOUS INFUSION DAILY 90 Days #18 vial NS insulin syringe-needle U-100 0.5 #100 ea 12/20/18 09/26/19 Unknown mL 31 gauge x 5/16" Trulicity 1.5 mg/0.5 mL 1.5 mg SQ WEEKLY #6 ml NS 01/25/19 10/02/19 Unknown subcutaneous pen injector albuterol sulfate 90 mcg/actuation 2 puffs INH Q6H PRN 02/11/19 10/02/19 Unknown aerosol inhaler cyanocobalamin (vitamin B-12) 3,000 mcg PO HS 02/11/19 10/02/19 Unknown 3,000 mcg capsule lancets 21 gauge #25 ea 02/11/19 09/26/19 Unknown oxybutynin chloride 5 mg tablet 5 mg PO BID #360 tab 02/11/19 10/02/19 Unknown fluticasone 500 mcg-salmeterol 50 1 puffs INH Q12H #60 ea 04/22/19 10/02/19 Unknown mcg/dose blistr powdr for inhalation CPAP Machine #1 ea 06/28/19 09/26/19 Unknown Dexcom G6 Mandrel Puller #1 ea NS 06/28/19 09/26/19 Unknown Dexcom G6 Sensor #3 ea NS 06/28/19 09/26/19 Unknown Dexcom G6 Transmitter #1 ea NS 06/28/19 09/26/19 Unknown brexpiprazole 0.5 mg tablet 0.5 mg PO QAM 07/08/19 10/02/19 Unknown lisdexamfetamine 30 mg capsule 30 mg PO QAM 07/08/19 10/02/19 Unknown aspirin [Aspirin Low Dose] 81 mg PO HS 10/02/19 10/02/19 Unknown fluticasone propionate [Flonase 1 sprays INTNAS BID PRN 10/02/19 10/02/19 Unknown Allergy Relief] omeprazole 40 mg PO QPM 10/02/19 10/02/19 Unknown bupropion HCl [Wellbutrin XL] 150 mg PO HS 10/03/19 10/03/19 Unknown Past Medical History Medical History Anxiety Asthma stable Basal cell carcinoma of face removed in office Chronic constipation Degenerative disc disease Depression Diabetes mellitus, type 2 + insulin pump Fatty liver Hyperlipidemia Hypertension Morbid obesity with BMI of 40.0-44.9, adult Osteoarthritis Sleep apnea CPAP Exercise / Class Metabolic Activity III < 4 Walking/Shop/Light housework Past Family History Family History Unknown Basal cell carcinoma (BCC) in situ of skin Alzheimer disease Myocardial infarction Malignant neoplasm metastatic to skin Mother Arthritis Brother Type 2 diabetes mellitus Environmental allergies Hypertension Family history of diabetes mellitus Father Basal cell carcinoma (BCC) Coronary heart disease FH: deafness or hearing loss Myocardial infarction Family history of diabetes mellitus Sister Malignant melanoma Congenital heart disease Family history of diabetes mellitus Other No family history of adverse response to anesthesia Past Surgical History Surgical History History of bilateral cataract extraction History of carpal tunnel release of both wrists History of colonoscopy with polypectomy History of left breast biopsy benign History of repair of left rotator cuff History of repair of right rotator cuff History of wisdom tooth extraction S/P cholecystectomy S/P T&A (status post tonsillectomy and adenoidectomy) Status post lateral meniscus repair x2--on right knee, 1986, 1994 Status post right knee replacement (Resolved) Status post trigger finger release left hand, middle finger Past Anesthesia History Difficult Airway, No Family Hx of Anesthesia Complications and Other Patient had left shoulder athroscopy 01/2008 at [facility]. Post-operative pulmonary consult notes hypoventilation syndrome probably related to severe sleep apnea and obesity. She alsp appears to have B/L pulmonary infiltrates un uncertain etiology, ? ARDS-like picture. Patient was life-flighted to [facility] and remained in a coma/was on ventilator x 10 days. Patient later had Right RCR at [facility]: 09/12/12: Awake fiberoptic. 7.0 ETT. No anesthesia complications per post-op note. Subsequently, patient had cholecystectomy 08/01/13 at [facility]. Per anesthesia difficult airway alert form: Mask ventilation "marginally effective using oral airway + 2 providers..Able to get grade I view after topicalization or sedation using Glidescope awake but unable to negotiate tube through cords due to limited oral opening (inadequate room in mouth to maneuver tube) + anterior glottis. S till unable to intubate using Glidescope + fiberoptic bronchoscope as intubating stylet.. In future, recommend awake intubation using Glidescope + fiberoptic bronchoscope as noted above, or typical awake fiberoptic (patient intubated in this manner previously)." So for right rotator cuff and cholecystectomy (2013) had to be intubated both times while awake, per Dr. Bailey took over an hour to intubate pt for cholecystectomy *Also has post-operative memory loss x multiple surgeries* History of PONV No Hx of PONV and No Hx of Motion Sickness Social History Smoking Status: Never smoker Do You Dip or Chew Tobacco: No Hx Alcohol Use: Yes Alcohol type: wine alcohol intake frequency: other Alcohol Intake Frequency Comment: very rarely has a glass of wine Hx Substance Use: No substance use type: does not use Review of Systems Patient denies chest pain, shortness of breath, reflux, cough, wheezing, palpitations. Physical Exam Vital Signs VITALS BP 121/76 P 62 TEMP 98.3 SP02 94%RA RESP 18 PHYSICAL Full neck and c-spine range of motion. Full TMJ range of motion. TMD 3 finger breaths Mallampati Score 4 (Small oral opening) Dentition: lower incisors chipped, Lungs: coarse breath sounds throughout Cardiac: regular rate and rhythm, no murmurs noted Spine: normal Carotid arteries: negative bruit Extremities: no edema Short, thick neck Testing Laboratory Results 10/03/19 08:46 10/03/19 08:46 Hemoglobin A1c 7.7 % (4.5-5.6) H 10/03/19 08:46 09/27/16 PT 10.7 PTT 30.8 INR 1.0 *Surgeon's office made aware of elevated hgba1c* Electrocardiogram Date: 10/03/19 NSR at 62bpm. Normal ECG. unconfirmed report* Chest X-Ray Date: 10/03/19 Findings: + NAD
--- NOTE | 2019-10-03 09:12 | XRay Report ---
XR chest Pre-admission PA/Lat CLINICAL HISTORY: PAT preoperative COMPARISON STUDY: 07/23/2018 FINDINGS: The bones soft tissues and hemidiaphragms are normal. The cardiomediastinal silhouette is n ormal. The lungs are clear. The pulmonary vasculature is normal. IMPRESSION: Negative chest. ACT 112: Negative or not required by law. The above report was generated using voice recognition software. It may contain grammatical, syntax or spelling errors. Electronically signed by: Ja Rodriguez M.D. 10/03/2019 9:11 AM
[2019-10-03 10:58] LABS: Basophils # (auto) 0.02 K/uL (0-0.2); Basophils % (auto) 0.2 %; Eosinophils # (auto) 0.14 K/uL (0-0.5); Eosinophils % (auto) 1.6 %; Hematocrit (blood only) 39.3 % (37-47); Hemoglobin 12.8 g/dL (12.0-16.0); Immature Granulocytes # (auto) 0.02 K/uL (0.00-0.02); Immature Granulocytes % (auto) 0.2 %; Lymphocytes # (auto) 1.69 K/uL (1.2-3.4); Lymphocytes % (auto) 19.9 %; Mean Corpuscular Hemoglobin 27.7 pg (25-34); Mean Corpuscular Hgb Conc 32.6 g/dL (32-36); Mean Corpuscular Volume 85.1 fL (80-100); Mean Platelet Volume 9.9 fL (7.4-10.4); Monocytes # (auto) 0.66 K/uL (0.11-0.59); Monocytes % (auto) 7.8 %; Neutrophils # (auto) 5.98 K/uL (1.4-6.5); Neutrophils % (auto) 70.3 %; Platelet Count 175 K/uL (130-400); RDW Coefficient of Variation 13.8 % (11.5-14.5); RDW Standard Deviation 42.5 fL (36.4-46.3); Red Blood Count 4.62 M/uL (4.2-5.4); White Blood Count 8.51 K/uL (4.8-10.8)
[2019-10-03 11:05] LABS: BUN Creatinine Ratio 15.4 (10-20); Calcium 8.5 mg/dl (8.5-10.1); Est GFR (African American) 75.3; Est GFR (Non-African American) 64.9; Potassium 4.3 mmol/L (3.5-5.1)
[2019-10-03 11:07] LABS: Estimated Average Glucose 174 mg/dl; Hemoglobin A1C 7.7 % (4.5-5.6)
--- NOTE | 2019-10-04 06:22 | Electrocardiogram Report ---
Test Reason : Blood Pressure : / mmHG Vent. Rate : 062 BPM Atrial Rate : 062 BPM P-R Int : 186 ms QRS Dur : 092 ms QT Int : 428 ms P-R-T Axes : 078 074 090 degrees QTc Int : 434 ms Normal sinus rhythm Normal ECG When compared with ECG of 29-JUL-2016 16:05, No significant change was found Confirmed by Jose Hwang ([id number]) on 10/04/2019 6:21:50 AM Referred By: Fior Shearer Confirmed By:Jose Hwang
[2019-10-18] MEDS ORDERED: SODIUM CHLORIDE 0.9% 1000ML 1,000 ML IV SCH (06:00)
[2019-10-18] MEDS ORDERED: LACTATED RINGER'S 1,000 ML IV SCH (06:00)
[2019-10-18] MEDS ORDERED: LR 15ML/HR IV SCH (06:00)
[2019-10-18] MEDS ORDERED: MIDAZOLAM HCL 1 MG/ML 2ML VIAL ONE (07:02)
[2019-10-18] MEDS ORDERED: fentaNYL citrate 100 MCG/2 ML VIAL ONE (07:02)
[2019-10-18] MEDS ORDERED: BUPIVACAINE 0.5 % 5 MG/1 ML PF 10ML VIAL ONE (07:18)
--- NOTE | 2019-10-18 07:28 | History & Physical Bridge Note ---
Date of Service October 18, 2019 History & Physical Bridge Note I have examined the patient, reviewed the History & Physical and in the interval since the performance of the History & Physical I have noted the following changes of clinical significance: no changes noted
[2019-10-18] MEDS ORDERED: ONDANSETRON INJ 2 MG/ML 2 ML VIAL ONE (08:07)
[2019-10-18] MEDS ORDERED: KETOROLAC 30 MG/ML VIAL ONE (08:07)
[2019-10-18] MEDS ORDERED: PHENYLEPHRINE 100MCG/ML 5ML SYR ONE (08:21)
[2019-10-18] MEDS ORDERED: INSULIN ASPART 100 UNITS/ML 3 ML PEN SQ PRN (08:30)
[2019-10-18] MEDS ORDERED: ALBUTEROL HFA 8 GM INHALER INH PRN (08:30)
--- NOTE | 2019-10-18 08:30 | Post Operative Brief Note ---
PG Immediate Post Op with CF Date of Surgery October 18, 2019 Pre & Post Diagnosis Operation Date: 10/18/19 07:30 Pre-Op Diagnosis: Post Menopausal Bleeding Post-Op Diagnosis: Post Menopausal Bleeding I identified the patient and participated in the time-out.: Yes Procedure Operation Date: 10/18/19 07:30 Actual Procedures p Hysteroscopy,(Not Applicable) - Fior Shearer MD, FACOG s Dilation and Curettage, Polypectomy(Not Applicable) - Fior Shearer MD, FACOG Surgeon Fior Seharer MD, FACOG Defensive Line Coach none Estimated Blood Loss 5 Findings Consistent with Post-Op Diagnosis Specimens Specimen Description: A. endometrial polyp B. endometrial curretting
[2019-10-18] MEDS ORDERED: METOCLOPRAMIDE HCL INJ 5 MG/ML 2 ML VIAL IV PRN (08:49)
[2019-10-18] MEDS ORDERED: IBUPROFEN 600 MG TAB PO PRN (08:49)
[2019-10-18] MEDS ORDERED: KETOROLAC 30 MG/ML VIAL IV PRN (08:49)
[2019-10-18] MEDS ORDERED: ONDANSETRON INJ 2 MG/ML 2 ML VIAL IV PRN (08:49)
[2019-10-18] MEDS ORDERED: OXYCODONE/ACETAMINOPHEN 5mg/325mg TAB PO PRN (08:49)
[2019-10-18] MEDS ORDERED: ePHEDrine sulfate 50 MG/ML AMP IV PRN (08:57)
[2019-10-18] MEDS ORDERED: ATROPINE SULFATE 0.1 MG/ML 10ML SYR IV PRN (08:57)
[2019-10-18] MEDS ORDERED: DULOXETINE HCL 20 MG CAP PO SCH (09:00)
[2019-10-18] MEDS ORDERED: DOCUSATE SODIUM 100 MG CAP PO SCH (09:00)
[2019-10-18] MEDS ORDERED: SERTRALINE HCL 50 MG TABLET PO SCH (09:00)
[2019-10-18] MEDS ORDERED: LOSARTAN POTASSIUM 25 MG TAB PO SCH (09:00)
[2019-10-18] MEDS ORDERED: BuPROPion XL 150 MG TABCR PO SCH (09:00)
[2019-10-18] MEDS ORDERED: lamoTRIgine 100 MG TAB PO SCH (09:00)
[2019-10-18] MEDS ORDERED: NALTREXONE HCL 50 MG TAB PO SCH (09:00)
[2019-10-18] MEDS ORDERED: OXYBUTYNIN CHLORIDE 5 MG TAB PO SCH (09:00)
[2019-10-18] MEDS ORDERED: FLUTICASONE/VILANTEROL 200/25MCG 14 PUFFS/INHALER INH SCH (09:00)
--- NOTE | 2019-10-18 09:38 | Anesthesiology Progress Note ---
Date of Service October 18, 2019 Anesthesia Post Procedure Vital Signs Vital Signs: Temp Pulse Pulse Resp BP BP Pulse Ox 10/18/19 09:30 36.4 C L 59 L 16 114/62 99 10/18/19 09:20 59 L 16 120/78 99 10/18/19 09:10 56 L 16 107/56 L 100 10/18/19 09:00 64 16 101/53 L 99 10/18/19 08:50 63 16 102/57 L 99 10/18/19 08:42 36.2 C L 63 16 105/52 L 99 10/18/19 06:14 36.9 C 78 20 152/78 H 97 Transfer of Care Handoff Completed per policy Notes Mental Status: alert / awake / arousable and participated in evaluation Nausea / Vomiting: adequately controlled Pain: adequately controlled Airway Patency, RR, SpO2: stable & adequate BP & HR: stable & adequate Hydration State: stable & adequate Neuraxial Anesthesia: was administered and sensory block is resolving Anesthetic Complications: no major complications apparent and Pt Satisfied with anesthetic care
[2019-10-18] MEDS ORDERED: CARBOHYDRATES FOR HYPOGLYCEMIA PO PRN (10:30)
[2019-10-18] MEDS ORDERED: INSULIN ASPART 100 UNITS/ML VIAL SC PRN (10:30)
[2019-10-18] MEDS ORDERED: GLUCOSE 10 TABS/TUBE PO PRN (10:30)
[2019-10-18] MEDS ORDERED: GLUCOSE 40% GEL 15 GM TUBE PO PRN (10:30)
[2019-10-18] MEDS ORDERED: DEXTROSE 50% 50 ML SYRINGE IV PRN (10:30)
[2019-10-18] MEDS ORDERED: GLUCAGON FOR INJ 1 MG VIAL SQ PRN (10:30)
[2019-10-18] MEDS ORDERED: ACETAMINOPHEN 325 MG TAB PO PRN (10:30)
[2019-10-18] MEDS ORDERED: NovoLOG INSULIN PUMP SCH (11:30)
--- NOTE | 2019-10-18 13:09 | Operative Report (OR) ---
DATE OF OPERATION: 10/18/2019 SURGEON: Fior Wiggins MD PREOPERATIVE DIAGNOSES: Postmenopausal bleeding, endometrial polyps on hysterosonogram. POSTOPERATIVE DIAGNOSES: Same. PROCEDURE: Hysteroscopy polypectomies with MyoSure and D&C HISTORY: The patient is a 63-year-old nulliparous white female who presented with a single episode of bright red bleeding vaginally. She is currently postmenopausal. Ultrasound showed a thickened microcystic lining. Hysterosonogram confirmed the presence of 2 endometrial polyps; 1 near the fundus of the uterus and 1 near the endocervical canal. She is now scheduled for D and C, hysteroscopy and polypectomy. She has a complicated anesthesia history with difficulty on intubation as well as on regional blocks. She had a discussion with anesthesiology and we have elected to go with a subarachnoid block as her anesthesia. GROSS FINDINGS: External genitalia are within normal limits. There is a mild rectocele present. Exam under anesthesia reveals a small, mobile uterus. There are no adnexal masses present. Under direct hysteroscopic evaluation the uterine cavity has a normal contour with a large polyp originating from the fundus of the uterus and extends down near the uterocervical junction. Tubal ostia could be identified and were noticed to be in the normal configuration. DESCRIPTION OF PROCEDURE: After the patient received adequate subarachnoid block, she was prepped and draped in usual sterile fashion. After bladder was emptied, a weighted speculum was placed in the vagina and the anterior lip of the cervix was grasped with a single tooth tenaculum. The uterus sounded to 9 cm. The cervix was then dilated to a #31 Hanks dilator. The hysteroscope was inserted and findings were noted as above. The MyoSure was used to remove the polyp totally. Post-polypectomy evaluation showed there was no retained tissue. D&C was performed, a curettage was then performed and there was scant tissue obtained. This was sent separately and then the polyp. A tiny polyp that appeared to be on the external cervical os was removed with an Allis clamp. Bleeding at the single tooth tenaculum site was controlled with an Allis and direct pressure. At this point, hemostasis was noted to be excellent. The patient tolerated the procedure well with minimal sedation. There was a 200 mL deficit of normal saline, which was used as expanding medium. The patient revived in recovery room in good condition. I attest to the content of the Intraoperative Record and any orders documented therein. Any exception s are noted below.
[2019-10-18] MEDS ORDERED: PANTOprazole 40 MG TAB PO SCH (21:00)
--- NOTE | 2019-10-21 11:32 | Discharge Summary (DS) ---
PRINCIPAL DIAGNOSIS: Postmenopausal bleeding and endometrial polyps on hysterosonogram. PRINCIPAL PROCEDURE: Hysteroscopy, D and C and polypectomy. HISTORY OF PRESENT ILLNESS: The patient is a 63-year-old nulliparous white female who presented with bright red vaginal bleeding. She was noted to have endometrial polyps on hysterosonogram. She was then scheduled for D and C, hysteroscopy and polypectomy. She has a complicated anesthetic history with a difficult intubation history resulting in being intubated for 2 weeks while in a coma with one of her prior surgeries; she is most concerned about the anesthetic. Dr. Cui was able to perform subarachnoid block which gave us adequate anesthesia to perform the hysteroscopy, D&C and polypectomy. The patient was very comfortable throughout the whole procedure. She was kept for observation until she was able to walk and void independently. She was able to go home before dinner time on the . The patient is to call for the usual postop concerns, heavy bleeding, pain, temperature over 101 degrees. We will be contacting her with the path report once it is available.
== END 2019-10-18 15:41 | disposition home or self-care (01) ==
LOC: ASU 05:31 → 4N 05:31